=== PATIENT | female | born 1950 | race Caucasian/White ===

== ENCOUNTER 2019-06-20 15:52 | Inpatient (IN) | payer MEDICARE ==
[~2019-06-20] VITALS: Ht 154.9 cm; Wt 65.8 kg
[2019-06-20 21:43] VITALS: BP 157/90
--- NOTE | 2019-06-20 21:43 | NUR ---
Pt. arrived on floor at 2142 by reddy from [place]. Pt. is A&Ox3, denies pain. Pt. is on AFB precautions for suspected tuberculosis. Admission assessment done at this time. Admission questions were answered as well. Bed in lowest position, call light within reach. Will continue to monitor.
[2019-06-20 23:00] VITALS: BP 145/75
[2019-06-21] MEDS ORDERED: HYDR-2761 PO (00:27)
[2019-06-21] MEDS ORDERED: MULT-638 PO (00:27)
[2019-06-21] MEDS ORDERED: ENOX40DI SQ (00:27)
[2019-06-21] MEDS ORDERED: PANT40TA77 PO (00:27)
[2019-06-21] MEDS ORDERED: POTA20TA82 PO (00:27)
[2019-06-21] MEDS ORDERED: ASCO500T3 PO (00:27)
[2019-06-21] MEDS ORDERED: NYST15CR TP (00:27)
[2019-06-21] MEDS ORDERED: LISI-334 PO (00:27)
[2019-06-21] MEDS ORDERED: L. R1CAP6 PO (00:27)
[2019-06-21] MEDS ORDERED: ONDA4TAB7 IV (00:27)
[2019-06-21] MEDS ORDERED: PIP/TAZO PER PHARMACY MC PRN (00:45)
[2019-06-21] MEDS ORDERED: ONDANSETRON PF 4 MG/2 ML VIAL. IV PRN (01:00)
[2019-06-21] MEDS: IV NORMAL SALINE 1000ML BAG 1,000 ML IV SCH ×2 (01:00→17:05)
--- NOTE | 2019-06-21 01:53 | NUR ---
Pt. is from home. States she is wheelchair bound but sometimes uses a walker to move around in the home. Pt. takes care of who is also wheelchair bound, has leukemia, and is an amputee. Pt. states she would like more help around the home. They have an agency that helps them clean a little but pt. usually cleans around the house when no one is around to help.
[2019-06-21] MEDS: VANCOMYCIN PER PHARMACY MC PRN ×2 (02:16→15:35)
--- NOTE | 2019-06-21 02:16 | NUR ---
Pharmacy Vancomycin Dosing Note S:Consulted to monitor and dose vancomycin started 06/16/19. O:KATHLEEN CULP is a 68 year old F with UTI LEUKOCYTOSIS, DECUB ULCER . Height: feet, inches Weight: kg [place] Body Weight: 47.80 Adjusted Body Weight: 53.48 Dosing Weight: Actual Other Antibiotics: ZOSYN 3.375 GM Q6H LABS: Last BUN: 7 Last Creatinine: 0.8 Creatinine Clearance: 46 mL/min Last WBC: 9.9 Last Procalcitonin: Tmax (past 24 hours): Microbiology: I/O: Drug Levels: Last Trough level: 18.4 on 06/19/19 at 1600 Last dose given 06/20/19 at 1600 Vancomycin Dosing: Loading Dose: STARTED AT [facility] x1 Dosing Weight: Actual Target Trough: 10-20 A: Based on: [facility] LABS AND LEVELS P: 1. Continue Vancomycin 1000 mg IV q12h 2. Follow up level IF NEEDED 3. Pharmacy will continue to monitor, follow and adjust therapy as needed. DALI RODRÍGUEZ RPH, 06/21/19 0216 Signed: 06/21/19 at 0217 by DALI RODRÍGUEZ RPH PHA
[2019-06-21 03:00] VITALS: BP 151/78
[2019-06-21] MEDS: VANCOMYCIN 1 GM in IV NORMAL SALINE 250ML 250 ML IV SCH ×2 (04:40→17:06)
[2019-06-21] MEDS: ACETAMINOPHEN 325 MG TABLET. PO PRN (04:48)
[2019-06-21] MEDS ORDERED: PIPERACILLIN/TAZOBACTAM 4.5 GM in IV NORMAL SALINE 100ML 100 ML IV SCH (06:00)
[2019-06-21] MEDS: PIPERACILLIN/TAZOBACTAM 3.375 GM in IV NORMAL SALINE 50ML 50 ML IV SCH ×4 (06:22→23:31)
[2019-06-21 07:00] VITALS: BP 157/78
--- NOTE | 2019-06-21 07:26 | NUR ---
Spoke with Dr. Charles re: ortho consult for L femur fx. Ok for pt to eat this am, he will visit with her later on today.
[2019-06-21 08:30] LABS: BASO # 0.1 x10^3/uL (0.0-0.2); BASO % 1 % (0-3); EOS # 0.4 x10^3/uL (0.0-0.7); EOS % 4 % (0-3); HEMATOCRIT 32.1 % (36.0-47.0); HEMOGLOBIN 10.8 g/dL (12.0-15.5); LYMPH # 1.2 x10^3/uL (1.0-4.8); LYMPH % 12 % (24-48); MEAN CORPUSCULAR HEMOGLOBIN 29 pg (25-35); MEAN CORPUSCULAR HGB CONC 34 g/dL (31-37); MEAN CORPUSCULAR VOLUME 87 fL (79-100); MONO # 0.7 x10^3/uL (0.0-1.1); MONO % 7 % (0-9); NEUT # 7.9 x10^3/uL (1.8-7.7); NEUT % 77 % (31-73); PLATELET COUNT 417 x10^3/uL (140-400); RED CELL DISTRIBUTION WIDTH 13.5 % (11.5-14.5); WHITE BLOOD COUNT 10.2 x10^3/uL (4.0-11.0)
[2019-06-21 08:55] LABS: ALBUMIN 2.4 g/dL (3.4-5.0); ALBUMIN/GLOBULIN RATIO 0.6 (1.0-1.7); CREATININE 0.7 mg/dL (0.6-1.0); GFR 83.5; TOTAL BILIRUBIN 0.3 mg/dL (0.2-1.0); TOTAL PROTEIN 6.6 g/dL (6.4-8.2)
[2019-06-21] MEDS ORDERED: NYSTATIN 100,000 UNIT/GM TOPICAL CREAM 15GM TUBE. TP SCH (09:00)
--- NOTE | 2019-06-21 09:13 | NUR ---
IP: Pt is a transfer from [facility] and needs a mrsa screen. Pt also is a r/o TB according to [facility]. TB test negative, Quantiferon drawn 04/19/19 and is pending. Pt had nodules on CXR. Pt to be in contact/airborne-TB precautions. Recommend either a pulmonary or ID consult.
--- NOTE | 2019-06-21 10:22 | PDOC2 ---
CONSULT Date of Consult Date of Consult DATE: 06/21/19 TIME: 10:06 Reason for Consult Reason for Consult: Possible left hip fracture Identification/Chief Complaint Chief Complaint Difficulty walking, weakness Source Source: Chart review, Patient History of Present Illness Reason for Visit: This 68-year-old woman has difficulty walking, and uses a wheelchair or walker at home. Her is also wheelchair-bound, and she is asking several times to get home as soon as possible to help care for him. She denies any recent hip injury or pain. She says she had a hip injury treated [facility] in 2018. Most of her complaints involve weakness of the lower extremities and difficulty walking especially the right leg. She said it was difficult even to lift the right leg from the bed, but is not painful. She had been sitting in a wheelchair for about 10 days, and apparently developed a decubitus ulcer. She is on TB precautions currently. I reviewed her admission notes from [facility] earlier this months, as follows: The patient is a 68-year-old female patient who lives [place] her in a [place] property who apparently was brought to the Emergency Room because of weakness. According to her , she has been in her wheelchair for the last week and a half. She is complaining of pain in her right knee and right ankle as well as left shoulder, has not been eating or drinking. Her does not know if she has a bowel movement. She took a shower while in a wheelchair. He apparently gets all her medication from the [place]. There is a lady that comes and helps to clean the house, but they do not have any home health or private care. Both of them are wheelchair bound. She herself cannot transfer from her wheelchair to the bed and the does most of the cooking, laundry; however, he is unable to lift her from the wheelchair to the bed. She apparently has been in a wheelchair for the last 10 days and developed stage 4 decubitus ulcer on her right buttock with central eschar with surrounding erythema. She has also severe intertriginous candidiasis below her breasts around her umbilical area and both groins area and perianal. She is apparently incontinent of urine. Apparently, follows with Dr. Weiss and the last time which she saw him about a month ago. He wanted to do x-rays of her right knee, right ankle and left shoulder, but she has never made it there. Social History Lives: with Family Current Medications Current Medications Current Medications Ascorbic Acid (Vitamin C) 500 mg BID PO ; Start 06/21/19 at 09:00 Enoxaparin Sodium (Lovenox 40mg Syringe) 40 mg DAILY SQ ; Start 06/21/19 at 09:00 Acetaminophen/ Hydrocodone Bitart (Lortab 5/325) 1 tab PRN Q6HRS PRN PO MODERATE PAIN 4-6; Start 06/21/19 at 00:30 Lisinopril (Prinivil) 20 mg DAILY PO ; Start 06/21/19 at 09:00 Multivitamins (Thera M Plus) 1 tab DAILY PO ; Start 06/21/19 at 09:00 Nystatin (Mycostatin) 1 rui BID TP ; Start 06/21/19 at 09:00; Status Cancel Pantoprazole Sodium (Protonix) 40 mg DAILYAC PO ; Start 06/21/19 at 07:30 Lactobacillus Rhamnosus (Culturelle) 1 cap BID PO ; Start 06/21/19 at 09:00 Ondansetron HCl (Zofran) 4 mg PRN Q4HRS PRN IV NAUSEA/VOMITING 1ST CHOICE; Start 06/21/19 at 01:00 Potassium Chloride (Klor-Con) 20 meq TID PO ; Start 06/21/19 at 09:00 Piperacillin Sod/ Tazobactam Sod (Zosyn Per Pharmacy) 1 each PRN DAILY PRN MC SEE COMMENTS; Start 06/21/19 at 00:45 Vancomycin HCl (Vanco Per Pharmacy) 1 each PRN DAILY PRN MC SEE COMMENTS Last administered on 06/21/19at 02:16; Start 06/21/19 at 00:45 Piperacillin Sod/ Tazobactam Sod 4.5 gm/Sodium Chloride 100 ml @ 200 mls/hr Q8HRS IV ; Start 06/21/19 at 06:00; Status UNV Vancomycin HCl 1 gm/Sodium Chloride 250 ml @ 250 mls/hr Q12H IV Last administered on 06/21/19at 04:40; Start 06/21/19 at 04:00 Acetaminophen (Tylenol) 650 mg PRN Q4HRS PRN PO MILD PAIN / TEMP Last administered on 06/21/19at 04:48; Start 06/21/19 at 01:00 Sodium Chloride 1,000 ml @ 75 mls/hr [id number] IV Last administered on 06/21/19at 02:17; Start 06/21/19 at 01:00 Piperacillin Sod/ Tazobactam Sod 3.375 gm/Sodium Chloride 50 ml @ 100 mls/hr Q6HRS IV Last administered on 06/21/19at 06:22; Start 06/21/19 at 06:00 Nystatin (Nystop) 1 rui BID TP ; Start 06/21/19 at 09:00 Active Scripts Active Reported Potassium Chloride 20 Meq Tablet.er 20 Meq PO TID Protonix (Pantoprazole Sodium) 40 Mg Tablet.dr 40 Mg PO DAILYAC Zofran (Ondansetron Hcl) 4 Mg Tablet 4 Mg IV Q4HRS PRN Nystatin 15 Gm Cream..g. 1 Rui TP BID Thera M Plus Tablet (Multivits,Ca,Minerals/Iron/FA) 1 Each Tablet 1 Each PO ANTOINE Y Lisinopril 20 Mg Tablet 1 Tab PO DAILY Culturelle Probiotics Capsule (L. Rhamnosus GG/Inulin) 1 Each Capsule 1 Each PO BID Hydrocodone-Apap 5-325 (Hydrocodone Bit/Acetaminophen) 1 Tab Tablet 1 Tab PO PRN Q6HRS PRN Lovenox (Enoxaparin Sodium) 40 Mg/0.4 Ml Disp.syrin 40 Mg SQ DAILY Ascorbic Acid 500 Mg Tablet 500 Mg PO BID Allergies Allergies: Coded Allergies: No Known Drug Allergies (Unverified , 06/21/19) ROS General: YES: Fatigue Musculoskeletal: Yes Gait Disturbance Neurological: Yes Gait Disturbance, Yes Weakness Physical Exam General: Alert, Cooperative HEENT: Atraumatic Lungs: Normal air movement Heart: Regular rate Abdomen: Soft Extremities: Other (the right lower extremity seems to have weakness, she is unable to lift the leg from the bed. There is valgus deformity at the knee, and minimal tenderness, doubtful effusion, but the exam is consistent with chronic valgus osteoarthritis of the right knee. She has flattening of the arch of the right foot, and decreased motion of the ankle, most consistent with arthritis, although lumbar radiculopathy or spinal stenosis with subsequent weakness is also possible. I moved her left hip around fairly aggressively, and she had no hip pain. I mimicked weightbearing by loading the left leg, and again there is no hip pain. There is no bruising at the hip and no tenderness. Clinically there is no current fracture of the left hip.) Neuro: Normal speech, Other (weakness right lower extremity greater than left lower instrument as above) MUSCULOSKELETAL: Abnormal exam of right (knee and ankle, osteoarthritis, poss ibly posttraumatic. There seems to be possibly some underlying weakness as well.) Vitals VITALS Vital Signs Date Time Temp Pulse Resp B/P (MAP) Pulse Ox O2 Delivery O2 Flow Rate FiO2 06/21/19 07:00 98.0 74 14 157/78 (104) 94 Room Air 98.0 Labs Labs Laboratory Tests Test 06/20/19 06:00 06/21/19 06:00 Sodium Level 141 mmol/L (136-145) Potassium Level 4.0 mmol/L (3.5-5.1) Chloride Level 105 mmol/L (98-107) Carbon Dioxide Level 24 mmol/L (21-32) Anion Gap 12 (6-14) Blood Urea Nitrogen 8 mg/dL (7-20) Creatinine 0.7 mg/dL (0.6-1.0) Estimated GFR (Cockcroft-Gault) 83.5 BUN/Creatinine Ratio 11 (6-20) Glucose Level 83 mg/dL (70-99) Calcium Level 9.0 mg/dL (8.5-10.1) Total Bilirubin 0.3 mg/dL (0.2-1.0) Aspartate Amino Transf (AST/SGOT) 26 U/L (15-37) Alanine Aminotransferase (ALT/SGPT) 26 U/L (14-59) Alkaline Phosphatase 60 U/L (46-116) Total Protein 6.6 g/dL (6.4-8.2) Albumin 2.4 g/dL (3.4-5.0) Albumin/Globulin Ratio 0.6 (1.0-1.7) White Blood Count 10.2 x10^3/uL (4.0-11.0) Red Blood Count 3.70 x10^6/uL (3.50-5.40) Hemoglobin 10.8 g/dL (12.0-15.5) Hematocrit 32.1 % (36.0-47.0) Mean Corpuscular Volume 87 fL (79-100) Mean Corpuscular Hemoglobin 29 pg (25-35) Mean Corpuscular Hemoglobin Concent 34 g/dL (31-37) Red Cell Distribution Width 13.5 % (11.5-14.5) Platelet Count 417 x10^3/uL (140-400) Neutrophils (%) (Auto) 77 % (31-73) Lymphocytes (%) (Auto) 12 % (24-48) Monocytes (%) (Auto) 7 % (0-9) Eosinophils (%) (Auto) 4 % (0-3) Basophils (%) (Auto) 1 % (0-3) Neutrophils # (Auto) 7.9 x10^3/uL (1.8-7.7) Lymphocytes # (Auto) 1.2 x10^3/uL (1.0-4.8) Monocytes # (Auto) 0.7 x10^3/uL (0.0-1.1) Eosinophils # (Auto) 0.4 x10^3/uL (0.0-0.7) Basophils # (Auto) 0.1 x10^3/uL (0.0-0.2) Laboratory Tests Test 06/21/19 06:00 White Blood Count 10.2 x10^3/uL (4.0-11.0) Red Blood Count 3.70 x10^6/uL (3.50-5.40) Hemoglobin 10.8 g/dL (12.0-15.5) Hematocrit 32.1 % (36.0-47.0) Mean Corpuscular Volume 87 fL (79-100) Mean Corpuscular Hemoglobin 29 pg (25-35) Mean Corpuscular Hemoglobin Concent 34 g/dL (31-37) Red Cell Distribution Width 13.5 % (11.5-14.5) Platelet Count 417 x10^3/uL (140-400) Neutrophils (%) (Auto) 77 % (31-73) Lymphocytes (%) (Auto) 12 % (24-48) Monocytes (%) (Auto) 7 % (0-9) Eosinophils (%) (Auto) 4 % (0-3) Basophils (%) (Auto) 1 % (0-3) Neutrophils # (Auto) 7.9 x10^3/uL (1.8-7.7) Lymphocytes # (Auto) 1.2 x10^3/uL (1.0-4.8) Monocytes # (Auto) 0.7 x10^3/uL (0.0-1.1) Eosinophils # (Auto) 0.4 x10^3/uL (0.0-0.7) Basophils # (Auto) 0.1 x10^3/uL (0.0-0.2) Images Images Reports reviewed, images independently reviewed. I reviewed the CT scan of the left hip. Doubtful fracture. I agree if there was high index of suspicion I would get an MRI, however her examination is benign so I do not believe MRI is necessary. I also reviewed the 2018 "hip fracture" which was a greater tuberosity fracture and pubic rami fractures, and these may causing some of the abnormalities on x-ray and CT. She has posttraumatic appearing right ankle osteoarthritis. There is right knee osteoarthritis, also possibly posttraumatic. There is a an old left proximal humerus fracture which is well-healed, and subsequent osteoarthritis [place] [address] IMAGING REPORT Signed PATIENT: KATHLEEN CULP ACCOUNT: [id number] : 1950 LOCATION: [address] [place] [address] AGE: 68 SEX: F EXAM STATUS: ADM IN ORD. PHYSICIAN: MOISE PRATT MD REASON: SEVERE BACK PAIN INCONTINENCE AND INABILITY TO WALK PROCEDURE: CT LUMBAR SPINE WO CONTRAST PQRS Compliance Statement: One or more of the following individualized dose reduction techniques were utilized for this examination: 1. Automated exposure control 2. Adjustment of the mA and/or kV according to patient size 3. Use of iterative reconstruction technique CT lumbar spine and pelvis without contrast 06/18/2019 INDICATION: Severe low back pain, incontinence and inability to walk. COMPARISON: None available. TECHNIQUE: Multiple axial CT images of the lumbar spine and pelvis were obtained without intravenous contrast. Coronal and sagittal reformats are provided. FINDINGS: There is levoconvex scoliosis of the lumbar spine with apex levocurvature at L3-L4. Vertebral body heights are maintained. Sagittal alignment is intact. There is moderate disc height loss at L5-S1. Mild disc height loss at T12-L1 and L1-L2. Mild to moderate intramarginal osteophytosis, most prominent at L5-S1. L1-L2: There is a moderate disc bulge asymmetric to the left. Is mild facet arthropathy. There is moderate left and mild right neuroforaminal stenosis. No spinal canal stenosis. L2-L3: Mild disc bulge. There is mild to moderate facet arthropathy. Mild bilateral neuroforaminal stenosis. No spinal canal stenosis. L3-L4: There is a moderate disc bulge. There is mild to moderate facet arthropathy. There is moderate bilateral neuroforaminal stenosis. Mild to moderate spinal canal stenosis. L4-L5: There is a moderate disc bulges central disc protrusion. Is moderate facet arthropathy with ligamentum flavum infolding. There is moderate neuroforaminal stenosis, left greater than right. There is moderate spinal canal stenosis. L5-S1: Mild disc bulge. There is moderate facet arthropathy, left. In right. There is moderate to severe left and moderate right neuroforaminal stenosis. No significant spinal canal stenosis. Abdominal aorta is normal in caliber. Superior pole right renal cyst is partially profiled measuring 3.6 cm. Motion artifact limits evaluation of the lower pelvis. There may be trace free fluid within the dependent portion of the pelvis. Prominent small bowel loops are identified in the left lower quadrant. Urinary bladder is within normal limits given degree of distention. Grimm catheter is identified. Uterus and adnexa are normal by CT. Rectum is normal in caliber. No pathologically enlarged pelvic lymph nodes. Sacrum and coccyx are intact. There is moderate bilateral hip joint space narrowing with marginal osteophytosis. There is either motion artifact are subtle step-off involving the basicervical left femur (series 4, image 34). Superior and inferior pubic rami are intact. There is osseous remodeling of the inferior left pubic ramus suggestive of remote fracture. Fascia appears intact. Acetabula are intact. Sacrum is intact. IMPRESSION: 1. Moderate lumbar spondylosis without acute fracture. Levoconvex scoliosis of the lumbar spine is present. 2. Suspect a nondisplaced fracture involving the basicervical left femur. Further characterization with MRI is recommended as there is motion artifact limiting evaluation. 3. Small volume free f -- luid in the pelvis. Electronically signed by: Angelita Gupta MD (06/18/2019 4:52 PM) [facility] DICTATED AND SIGNED BY: ANGELITA GUPTA MD DATE: 06/18/19 16[address] [place] [id number] IMAGING REPORT Signed PATIENT: KATHLEEN CULP ACCOUNT: [id number] : 1950 LOCATION: [address] [place] [address] AGE: 68 SEX: F EXAM STATUS: ADM IN ORD. PHYSICIAN: MOISE PRATT MD REASON: pain and difficulty walking PROCEDURE: PELVIS Indications: Pain and difficulty walking. 2 VIEW STUDY OF THE RIGHT ANKLE: No acute fracture or dislocation or lytic process is evident. Old healed fracture of the distal shaft of the right fibula is seen. Severe degenerative osteoarthritis of the mortise ankle joint is seen including joint space narrowing and subchondral sclerosis and spurring especially involving the tibiotalar joint compartment. There is flattening of the plantar arch. Plantar and posterior spurs of the calcaneus are seen. Subtalar joint compartments are poorly visualized. Therefore, osseous tarsal coalition is possible. IMPRESSION: No acute fracture. See discussion above. AP VIEW OF THE PELVIS: Old healed fractures of the superior and inferior pubic rami of the left obturator ring are seen. No acute-appearing fracture is evident. Contrast is seen within the urinary bladder which obscures the sacrum. IMPRESSION: Old fractures of the left obturator ring. TWO-VIEW STUDY LEFT SHOULDER: Deformity of the proximal left humerus is seen due to an old healed fracture. No acute-appearing fracture is evident. There is degenerative osteoarthritis of the AC joint and glenohumeral joint. There is impingement of the acromiohumeral space which may result in rotator cuff disease. IMPRESSION: No acute fracture. See discussion above. 2 VIEW STUDY OF THE RIGHT KNEE: No acute fracture is seen. There is deformity of the proximal right fibula consistent with an old healed fracture. Tricompartmental primary degenerative osteoarthritis of the right knee is seen most severely involving the lateral tibiofemoral joint compartment. Calcified atheromatous arterial disease is evident. IMPRESSION: Tricompartmental primary degenerative osteoarthritis of the right knee. Electronically signed by: Jayshree Broussard MD (06/16/2019 3:51 PM) [facility] DICTATED AND SIGNED BY: JAYSHREE BROUSSARD MD DATE: 06/16/19 1551 I also reviewed the 2018 hip injury. [address] [address] IMAGING REPORT Signed PATIENT: KATHLEEN CULP ACCOUNT: [id number] : 1950 LOCATION: ER AGE: 67 SEX: F EXAM STATUS: REG ER ORD. PHYSICIAN: YANIQUE BRAMBILA MD REASON: hip pain PROCEDURE: CT PELVIS WO CONTRAST CT PELVIS WO CONTRAST Indication: FALL 1 WEEK AGO, UNABLE TO BARE WEIGHT Exposure: One or more of the following individualized dose reduction techniques were utilized for this examination: 1. Automated exposure control 2. Adjustment of the mA and/or kV according to patient size 3. Use of iterative reconstruction technique. Comparison: None are available. Contrast: None Fracture of the greater tuberosity. Minimal displacement, measures 7 mm. No evidence of fracture line through the intertrochanteric region or femoral neck. No other acute fracture identified. Chronic fracture deformities of left inferior and left superior pubic rami. Mild degenerative changes at the hips. Sacroiliac joints are intact. Degenerative spondylosis of the partially visualized spine. Urinary bladder is collapsed around a Grimm catheter. Mild retained stool identified at the rectum. IMPRESSION: 1. Mildly displaced posttraumatic fracture of the greater trochanter of the left proximal femur. 2. Old fracture deformities of the left superior and inferior pubic rami. Electronically signed by: Leonel Rader MD (02/02/2018 3:55 PM) [facility] DICTATED AND SIGNED BY: LEONEL RADER MD DATE: 02/02/18 1544 CC: PCP,NO; YANIQUE BRAMBILA MD Assessment/Plan Assessment/Plan Unspecified fracture of left femur, sequela S72.92XS (She had a fracture in 2018, I don't believe there is any new fracture here, based on exam) Weakness R53.1 Spinal stenosis, lumbar region M48.06 Pressure ulcer of sacral region L89.15 I don't believe she needs further workup of the left hip. The left hip exami nation is unremarkable. X-rays and CT scan did not confirm any specific fracture. I would order an MRI if there was a high index of suspicion of left hip fracture but her main complaint is right leg weakness, and she had no hip pain with aggressive left hip range of motion. She may weight-bear as tolerated from my standpoint with no further left hip workup or surgery planned. She does have a lot of leg weakness on the right side and has spinal stenosis on the CT scan of the lumbar spine. I will ask Dr. Vee to be involved due to her global weakness and difficulty walking, and I will also consult Dr. Dominguez for possible lumbar epidural steroids. She is not a good surgical candidate presently for any lumbar surgery, due to the pressure ulcer. Physical therapy will be useful. CLIFF CANDELARIA MD Jun 21, 2019 10:22
[2019-06-21] MEDS: NYSTATIN TOPICAL POWDER 15GM BOTTLE. TP SCH ×2 (10:28→20:41)
[2019-06-21] MEDS: LISINOPRIL 20 MG TABLET PO SCH (10:30)
[2019-06-21] MEDS: LACTOBACILLUS RHAMNOSUS GG 1 CAPSULE. PO SCH ×2 (10:30→20:41)
[2019-06-21] MEDS: PANTOPRAZOLE 40 MG TABLET.DR. PO SCH (10:31)
[2019-06-21] MEDS: MULTIVITAMIN with MINERAL TABLET. PO SCH (10:31)
[2019-06-21] MEDS: POTASSIUM CHLORIDE 20 MEQ TABLET.ER. PO SCH ×3 (10:31→20:41)
[2019-06-21] MEDS: ASCORBIC ACID 500 MG TABLET PO SCH ×2 (10:31→20:41)
[2019-06-21] MEDS: ENOXAPARIN 40 MG/0.4 ML SYRINGE. SQ SCH (10:32)
--- NOTE | 2019-06-21 10:58 | NUR ---
SS following for discharge planning. SS reviewed pt chart. Pt is from home with spouse and is currently on room air. No discharge needs noted at this time. SS will continue to follow for discharge planning.
[2019-06-21 11:00] VITALS: BP 168/90
--- NOTE | 2019-06-21 11:45 | NUR ---
Per Omayra at Dr. Vee's office, he is out of town until Wednesday06/26/19, no coverage for him while he is gone.
--- NOTE | 2019-06-21 11:46 | NUR ---
Spoke with Keri at Dr. Dominguez office re: consult. States that pt is not a candidate for any procedures/injection at this time d/t infection, anticoags and buttocks PU but she will pass it to Dr. Dominguez in case there is other recommendations.
--- NOTE | 2019-06-21 12:29 | PDOC ---
SUBJECTIVE Subjective right hip pain OBJECTIVE Objective This 68yo female with C/O pain with walking, using wheelchair or walker at home. Most of her complaints involve weakness of the lower extremities and difficulty walking especially the right leg. She said it was difficult even to lift the right leg from the bed, but is not painful. She had been sitting in a wheelchair for about 10 days, and apparently developed a decubitus ulcer. She is on TB precautions currently. Vital Signs Vital Signs Date Time Temp Pulse Resp B/P (MAP) Pulse Ox O2 Delivery O2 Flow Rate FiO2 06/21/19 11:00 98.0 80 14 168/90 (116) 97 Room Air 98.0 06/21/19 10:32 74 157/78 06/21/19 07:45 Room Air 06/21/19 07:00 98.0 74 14 157/78 (104) 94 Room Air 98.0 06/21/19 03:00 97.9 76 14 151/78 (102) 96 Room Air 97.9 06/20/19 23:00 100.6 67 18 145/75 (98) 98 Room Air 100.6 06/20/19 21:43 98.4 71 16 157/90 (112) 97 Room Air 98.4 06/20/19 21:43 Room Air I & O Intake and Output 06/21/19 06:59 Intake Total 250 ml Output Total 1400 ml Balance -1150 ml Intake Oral 250 ml Output Urine Total 1400 ml ASSESSMENT/PLAN Assessment/Plan MRI reviewed with lumbar degeneration L4-5, L5-S1 REC: PT eval/Rehab eval pending, complete antibiotics course and treatment of decubitus Once these are resolved, and if eligible to hold anticoagulants, may benefit from LESI as outpt. COMMENT Lab Laboratory Tests Test 06/21/19 06:00 White Blood Count 10.2 x10^3/uL (4.0-11.0) Red Blood Count 3.70 x10^6/uL (3.50-5.40) Hemoglobin 10.8 g/dL (12.0-15.5) Hematocrit 32.1 % (36.0-47.0) Mean Corpuscular Volume 87 fL (79-100) Mean Corpuscular Hemoglobin 29 pg (25-35) Mean Corpuscular Hemoglobin Concent 34 g/dL (31-37) Red Cell Distribution Width 13.5 % (11.5-14.5) Platelet Count 417 x10^3/uL (140-400) Neutrophils (%) (Auto) 77 % (31-73) Lymphocytes (%) (Auto) 12 % (24-48) Monocytes (%) (Auto) 7 % (0-9) Eosinophils (%) (Auto) 4 % (0-3) Basophils (%) (Auto) 1 % (0-3) Neutrophils # (Auto) 7.9 x10^3/uL (1.8-7.7) Lymphocytes # (Auto) 1.2 x10^3/uL (1.0-4.8) Monocytes # (Auto) 0.7 x10^3/uL (0.0-1.1) Eosinophils # (Auto) 0.4 x10^3/uL (0.0-0.7) Basophils # (Auto) 0.1 x10^3/uL (0.0-0.2) ULI GAYTAN MD Jun 21, 2019 12:29
[2019-06-21] MEDS: HYDROcodone/APAP 5/325MG 1 TAB TABLET PO PRN ×2 (14:05→19:31)
--- NOTE | 2019-06-21 14:29 | PDOC2 ---
Chief Complaint: Chief Complaint: Weakness Problems: (1) Unstageable pressure ulcer of sacral region Vital Signs: Vital Signs: Vital Signs Date Time Temp Pulse Resp B/P (MAP) Pulse Ox O2 Delivery O2 Flow Rate FiO2 06/20/19 21:43 Room Air 06/20/19 21:43 98.4 71 16 157/90 (112) 97 98.4 Vital Signs Date Time Temp Pulse Resp B/P (MAP) Pulse Ox O2 Delivery O2 Flow Rate FiO2 06/21/19 14:11 Room Air 06/21/19 11:00 98.0 80 14 168/90 (116) 97 98.0 Allergies: Allergies: Allergies Coded Allergies Type Severity Reaction Last Updated Verified No Known Drug Allergies 06/21/19 No Medications: Home Meds Reported Medications Potassium Chloride (POTASSIUM CHLORIDE) 20 Meq Tablet.er, 20 MEQ PO TID for supplement, TAB.SR 06/21/19 Pantoprazole Sodium (PROTONIX ) 40 Mg Tablet.dr, 40 MG PO DAILYAC for GERD, TAB 06/21/19 Ondansetron Hcl (ZOFRAN) 4 Mg Tablet, 4 MG IV Q4HRS PRN for NAUSEA/VOMITING, TAB 06/21/19 Nystatin (NYSTATIN) 15 Gm Cream..g., 1 JIMMIE TP BID for antifungal, #30 GM 06/21/19 Multivits,Ca,Minerals/Iron/FA (Thera M Plus Tablet) 1 Each Tablet, 1 EACH PO DAILY for vitamin, TAB 06/21/19 Lisinopril (LISINOPRIL) 20 Mg Tablet, 1 TAB PO DAILY for blood pressure, #30 TAB 5 Refills 06/21/19 L. Rhamnosus GG/Inulin (Culturelle Probiotics Capsule) 1 Each Capsule, 1 EACH PO BID for probiotic, CAP 06/21/19 Hydrocodone Bit/Acetaminophen (HYDROCODONE-APAP 5-325 ) 1 Tab Tablet, 1 TAB PO PRN Q6HRS PRN for PAIN, TAB 0 Refills 06/21/19 Enoxaparin Sodium (LOVENOX) 40 Mg/0.4 Ml Disp.syrin, 40 MG SQ DAILY for ANTI- COAGULANT, DIS.SYR 06/21/19 Ascorbic Acid (ASCORBIC ACID) 500 Mg Tablet, 500 MG PO BID for vitamin, TAB 06/21/19 PCP: PCP: Dr Weiss Date of Onset Ms. Mijares was admitted in transfer from [facility] where she was originally admitted for weakness and possible hip fracture. She has limited mobility due to previous pelvis/hip/leg fractures but developed sufficient weakness recently that she remained in her WC for 10 days. As a consequence she developed coccyx and right buttock pressure sores. She denies pain associated with them. Surgical Date NA PMH Non diabetic PSH , lives at home with her who is WC bound. She has never smoked cigarettes Physical Exam - Wound #1 Wound Exam Body Site: Coccyx Drainage Amount: None Surrounding Tissue Appearance: pink Wound Description: unstagable (covered with soft dark eschar) Stage: Unstageable A/P Nonstagable right buttock pressure ulcer due to recent immobility. No s/s infection. Surgical debridement is an option but we should first try NPWT with veraflo. The primary modality for healing this wound will be off-loading by frequent positioning. Problems: (1) Unstageable pressure ulcer of sacral region VIDAL UNDERWOOD MD Jun 21, 2019 14:29
[2019-06-21 15:00] VITALS: BP 116/63
--- NOTE | 2019-06-21 15:58 | HP ---
ADMIT DATE: 06/20/2019 HISTORY OF PRESENT ILLNESS: The patient is a 68-year-old female patient, who was admitted on 06/16/2019, with marked weakness and pain in her right knee and right ankle joint as well as left shoulder. She has not been eating or drinking. She has been sitting in a wheelchair for almost 10 days. She was evaluated in the Emergency Room and was found to have large right gluteal decubitus ulcer. She was incontinent of urine. Has several intertriginous candidiasis under her breasts and around umbilical area as well as groin and perineal area. She has been unable to walk and so we did x-ray of her right ankle, right knee as well as lumbar spine and pelvic CT scan. Pelvic CT scan showed that there is a suspected nondisplaced fracture involving her basicervical left femur. Further characterization with MRI is recommended as there is motion artifact limiting evaluation. There is also small volume of fluid in the pelvis and therefore, a decision was made to transfer her to to consult the orthopedic surgeon to arrange for perhaps nuclear bone scan or MRI to characterize this fracture, failure. Imaging studies included also a CT angio of the chest, she has D-dimer elevated and it showed that she has numerous subcentimeter pulmonary nodules in the lung, prominently at the lung bases measuring up to 5 mm. There is no pleural effusion or thickening. There is cholelithiasis. Otherwise, the visualized upper abdominal organs are unremarkable. We actually did a tuberculin test, which was negative and was sent to QuantiFERON test, the result of which is still pending. The patient was kept in isolation and we did consult the orthopedic surgeon to evaluate her. I will also consult Infectious Disease for treatment of her infected right gluteal decubitus ulcer as well as possibility of miliary tuberculosis. PAST MEDICAL HISTORY: Significant for hypertension. PAST SURGICAL HISTORY: Unremarkable. ALLERGIES: She has no known drug allergies. MEDICATIONS: She was on mirtazapine and lisinopril before she arrived to the hospital. She is currently on multivitamin with calcium 1 tablet once a day, ascorbic acid 500 mg twice a day. She is on vancomycin 1 gram twice a day, potassium chloride 20 mEq 3 times a day, Protonix 40 mg daily, ondansetron 4 mg IV every 4 hours, Lovenox 40 mg subcutaneously once a day for DVT prophylaxis. She is on hydrocodone/APAP 5/325 one tablet every 6 hours, Zosyn 4.5 grams IV every 8 hours and Lactobacillus rhamnosus 1 capsule twice a day. She is also on Mycolog 1 application twice a day and lisinopril 20 mg once a day. FAMILY HISTORY: Unremarkable. SOCIAL HISTORY: She is and lives with , both are wheelchair bound. She does not smoke, drink alcohol or use recreational drugs. 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 She has one daughter who does not really keep in touch. REVIEW OF SYSTEMS: As per history of present illness. PHYSICAL EXAMINATION: GENERAL: When I saw her today, she looked well and was clearly in no apparent respiratory distress, slightly pale. No jaundice, cyanosis or thyromegaly. No jugular venous distention. No lower limb edema. VITAL SIGNS: Her heart rate was 80, blood pressure was 168/90, temperature was 98, respiratory rate was 14 and oxygen saturation was 97%. HEAD, EYES, EARS, NOSE, AND THROAT: Showed normocephalic, atraumatic. NECK: Supple. HEART: Showed normal first and second heart sounds with no gallop, rub or murmur. CHEST: Clear to auscultation. No crepitation or rhonchi. ABDOMEN: Distended, soft, nontender. No guarding or rigidity. No organomegaly. All hernial orifices are intact. Bowel sounds normal. NEUROLOGIC: She is awake, alert, very hard of hearing. Otherwise, her cranial nerves are intact. EXTREMITIES: She moves upper extremities without difficulty. She is having more difficulty with pain in her right ankle and right knee joint. LABORATORY DATA: Showed a white cell count of 10,000, hemoglobin 11, hematocrit 32, MCV 87, and platelet count of 117,000. Her serum sodium was 141, potassium 4, chloride 105, bicarbonate 24, anion gap of 12, BUN 8, creatinine 0.7, estimated GFR was 84 mL per minute. Her glucose was 83, calcium was 9. Total bilirubin, AST, ALT, alkaline phosphatase were normal. Total protein was 6.6, albumin 2.4. ASSESSMENT AND PLAN: In summary, this is a 68-year-old female patient, who was transferred from [facility] for a questionable left hip nondisplaced left femoral neck fracture. She also has multiple pulmonary nodules in the lung bases, proceeded tuberculin test and sent QuantiFERON test, the results are still pending. She is currently in isolation for that. She has also large right stage 4 sacral decubitus ulcer with surrounding cellulitis, which she was treated with IV vancomycin and Zosyn. She has difficulty walking. Severe pain in her right knee and right ankle joint as well as difficulty walking. Have consulted the orthopedic surgeon, Infectious Disease, Dr. Terry Dominguez, the face painter as well as Dr. Vee. MOISE PRATT MD DR: HANS/dania JOB#: [id number] / [id number]
--- NOTE | 2019-06-21 16:56 | NUR ---
Wound Care: Consult to eval and treat unstageable pressure ulcer to R coccyx present on admission. Per report, pt was at home and sitting in her WC for 10 days. Her legs are contracted and spasmodic. On P500 mattress. Screened by Dr. Colin who was unable to debride at bedside. Dr. Clarke approved veraflow therapy to soften eschar. Wound bed soft leathery eschar with sloughy borders and 15% pink granulation. 1 piece of silver waffle and 1 pice silver foam applied to wound bed, ostomy ring to periwound. Bridged to R anterior thigh. Hydrocolloid along edge of dressing proximal to rectum to prevent stool contamination. NS instilling 20cc [id number] dwell time Q3.5H. Communicated with Kylah MACHADO. Follow up Wednesday06/23/19
[2019-06-21 19:00] VITALS: BP 150/83
[2019-06-21 23:00] VITALS: BP 145/63
[2019-06-22 03:00] VITALS: BP 167/85
[2019-06-22] MEDS: VANCOMYCIN 1 GM in IV NORMAL SALINE 250ML 250 ML IV SCH ×2 (04:00→16:28)
[2019-06-22] MEDS: IV NORMAL SALINE 1000ML BAG 1,000 ML IV SCH ×2 (04:00→16:31)
[2019-06-22] MEDS: HYDROcodone/APAP 5/325MG 1 TAB TABLET PO PRN ×4 (04:01→17:43)
[2019-06-22] MEDS: PIPERACILLIN/TAZOBACTAM 3.375 GM in IV NORMAL SALINE 50ML 50 ML IV SCH ×3 (05:41→17:57)
[2019-06-22] MEDS: PANTOPRAZOLE 40 MG TABLET.DR. PO SCH (05:41)
[2019-06-22 06:38] LABS: CALCIUM 8.6 mg/dL (8.5-10.1); CREATININE 0.8 mg/dL (0.6-1.0); GFR 71.5; POTASSIUM 4.2 mmol/L (3.5-5.1)
[2019-06-22 07:00] VITALS: BP 133/61
[2019-06-22] MEDS: ASCORBIC ACID 500 MG TABLET PO SCH ×2 (08:14→20:33)
[2019-06-22] MEDS: POTASSIUM CHLORIDE 20 MEQ TABLET.ER. PO SCH ×3 (08:14→20:34)
[2019-06-22] MEDS: LISINOPRIL 20 MG TABLET PO SCH (08:15)
[2019-06-22] MEDS: MULTIVITAMIN with MINERAL TABLET. PO SCH (08:15)
[2019-06-22] MEDS: LACTOBACILLUS RHAMNOSUS GG 1 CAPSULE. PO SCH ×2 (08:16→20:33)
[2019-06-22] MEDS: NYSTATIN TOPICAL POWDER 15GM BOTTLE. TP SCH ×2 (08:17→20:37)
[2019-06-22] MEDS: ENOXAPARIN 40 MG/0.4 ML SYRINGE. SQ SCH (08:18)
[2019-06-22 11:00] VITALS: BP 124/64
--- NOTE | 2019-06-22 13:54 | NUR ---
SS following up with discharge planning. Dr. Clarke requested referral be sent to [facility], ; fax [phone]. SS phoned and faxed referral to [facility]. SS received phone contact from Rosa Elena at [facility] stating that referral was sent to them while pt was at [facility] and pt was accepted and insurance authorization had been approved while at [facility]. SS will continue to send clinical to [facility] as received. Pt's RN notified.
[2019-06-22] MEDS: VANCOMYCIN PER PHARMACY MC PRN (14:04)
--- NOTE | 2019-06-22 14:53 | PDOC ---
Infectious Disease Note Vital Sign Vital Signs Vital Signs Date Time Temp Pulse Resp B/P (MAP) Pulse Ox O2 Delivery O2 Flow Rate FiO2 06/22/19 11:00 98.9 69 14 124/64 (84) 98 Room Air 98.9 Labs Lab Laboratory Tests Test 06/22/19 05:55 Sodium Level 142 mmol/L (136-145) Potassium Level 4.2 mmol/L (3.5-5.1) Chloride Level 108 mmol/L (98-107) Carbon Dioxide Level 26 mmol/L (21-32) Anion Gap 8 (6-14) Blood Urea Nitrogen 8 mg/dL (7-20) Creatinine 0.8 mg/dL (0.6-1.0) Estimated GFR (Cockcroft-Gault) 71.5 Glucose Level 85 mg/dL (70-99) Calcium Level 8.6 mg/dL (8.5-10.1) Objective Assessment Pulmonary nodules predominantly at the lung apices. PPD neg Unstageable right gluteal pressure wound, POA. ESR 60. Pelvic CT showed no evidence osteo. Rosi intertrigo - improved with Nystatin powder Fever - better Leukocytosis (14.4) improved Spinal stenosis Generalized weakness Plan Plan of Care QuantiFERON test reportedly negative per D/w with Dr. Vince garcia and Alvaro for now. Monitor renal function closely Wound care team following Offloading Continue nystatin powder Consider pulmonary consult Thank you [id number] TB spot neg and in chart and no risk factors - d/c isolation Check Crypto/histo antigens -h/o bird exposure Pulm eval for bronch Local wound care Attending Co-Sign Attending Co-Sign The patient was seen and interviewed as well as examined at the bedside. The chart was reviewed. The case was discussed. Agree with the plan of care. ROCHELLE DIAZ APRN Jun 22, 2019 14:53 MARIA FERNANDA ARCEO MD Jun 22, 2019 16:48
[2019-06-22 15:00] VITALS: BP 146/67
--- NOTE | 2019-06-22 16:42 | CONS ---
DATE OF CONSULTATION: 06/22/2019 INFECTIOUS DISEASE CONSULTATION NOTE REFERRING PHYSICIAN: Keila Clarke MD REASON FOR CONSULTATION: Multiple pulmonary nodules concerning for tuberculosis versus other. HISTORY OF PRESENT ILLNESS: This patient is a 68-year-old female who lives at home with her . On 06/15/2019, she presented to [facility] with complaints of generalized weakness and unable to transfer from her wheelchair. She complained of right knee, right ankle as well as left shoulder pain. She had not been eating or drinking. She sat in her wheelchair for over a week and a half and was incontinent of urine. Imaging showed spinal stenosis, lumbar region and suspected nondisplaced fracture involving the basicervical left femur. She was evaluated by Dr. Charles with no surgical plans. On exam, she was found to have an unstageable pressure wound coccyx area and yeast in the skin folds. She had a ESR of 60. A CT pelvis showed sacrum and coccyx intact. She had elevated white blood cell count of 14,000. Her urinalysis showed wbc's 11-20 small leukocyte esterase with few bacteria and occasional squamous epithelial cells. Urine culture showed less than 10,000 CFU bacteria/mL. She had a PICC placed and was started on vancomycin and Zosyn. A CT chest showed innumerable small pulmonary nodules, predominantly at the lung opacities measuring up to 5 mm. Concern for tuberculosis, she was placed in airborne isolation. A tuberculin was negative and QuantiFERON test was ordered. Denies significant weight changes. The patient said 30 years ago, she live in [place] for about a year. She denies shortness of air, cough or chest discomfort. She denies significant weight changes,chills or sweats. She said her has had cold symptoms lately. She is feeling a little bit better overall. She had fever a couple days ago that has since settled down. Denies nausea, vomiting or diarrhea. She was seen by wound care team and now has a wound VAC in place. PAST MEDICAL HISTORY: Arthritis, hypertension, hearing problem. History of humerus fracture, left trochanteric fracture and pelvic fracture. PAST SURGICAL HISTORY: Appendectomy. FAMILY HISTORY: Noncontributory. SOCIAL HISTORY: The patient is and lives at home. She is wheelchair bound. Nonsmoker. 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 She has one daughter. She has cat and dog. She has a history of having a bird many years ago. ALLERGIES: No known drug allergies. CURRENT MEDICATIONS: Vancomycin, Zosyn, nystatin powder. Other medications are available and have been reviewed on the MAR. REVIEW OF SYSTEMS: Per HPI, otherwise all other review of systems are negative. PHYSICAL EXAMINATION: VITAL SIGNS: Temperature is 98.9, blood pressure 124/64, heart rate 69, respiratory rate 14 and pulse oximetry 98% on room air. GENERAL: The patient is slightly propped up in bed, lying on her right side, alert and in no apparent distress. HEENT: Pupils equally round, reactive. Normal conjunctivae. Oropharynx pink and moist. Poor dentition. She is hard of hearing. NECK: Supple. LUNGS: Clear to auscultation. HEART: S1, S2. ABDOMEN: Obese, soft, nontender with bowel sounds present. GENITOURINARY: Indwelling Grimm in place. EXTREMITIES: No gross edema or cyanosis. SKIN: Warm to touch. Skin folds minimally red. Right gluteal wound VAC in place. Pictures show an unstageable wound. NEUROLOGIC: Alert, oriented x 3. LUE-PICC without signs of any complications. LABORATORY DATA: Recent WBC 10.2, hemoglobin 10.8 and platelets 417,000. Sodium 142, potassium 4.2, creatinine 0.8, BUN 8, glucose 85, total bilirubin 0.3, AST 26, ALT 26, albumin 2.4. MRSA screen negative. Urinalysis and culture per HPI. Vancomycin trough was 18.4 on 06/19/2019. IMAGING DATA: Reviewed. IMPRESSION: 1. Pulmonary nodules, predominantly at the lung bases. PPD negative. QuantiFERON test reportedly negative as of this dictation. 2. Unstageable right gluteal pressure wounds present on admission. Pelvic CT showed no evidence of osteomyelitis. 3. Rosi intertrigo improving with nystatin powder. 4. Fever, better. 5. Leukocytosis, improved. 6. Spinal stenosis. 7. Generalized weakness. PLAN: Continue vancomycin and Zosyn for now. Monitor renal function closely. PPD and QuantiFERON tests were negative. Check cryptococcus and histoplasma antigens. Continue local wound care and offloading. Continue nystatin powder. May discontinue isolation precautions. Thank you, Dr. Clarke for asking us to participate in this patient's care. Should you have further questions or concerns, please call. Patient seen, examined and plan of care implemented by Dr. Arceo. MARIA FERNANDA ARCEO MD DR: NETO/dania JOB#: [id number] / [id number] ERIKA
[2019-06-22 19:00] VITALS: BP 139/88
[2019-06-22] MEDS: ACETAMINOPHEN 325 MG TABLET. PO PRN (20:33)
[2019-06-22 23:00] VITALS: BP 149/81
[2019-06-23] MEDS: PIPERACILLIN/TAZOBACTAM 3.375 GM in IV NORMAL SALINE 50ML 50 ML IV SCH ×5 (00:02→23:53)
[2019-06-23 03:00] VITALS: BP 141/78
--- NOTE | 2019-06-23 03:17 | PN ---
DATE: 06/22/2019 SUBJECTIVE: The patient is resting, slightly propped up in bed, no apparent distress. On questioning her, she stated that she is feeling much better. Pain in her right gluteal area is much less. She is now on wound vacuum assisted closure device. Her tuberculin test was negative. I did send the QuantiFERON test, the result of which is still pending. She was seen by Dr. Charles and he does not believe that the patient has any hip fracture and does not recommend doing an MRI. PHYSICAL EXAMINATION: GENERAL: When I examined her this morning, she looked well and was clearly in no apparent respiratory distress. No pallor, jaundice, cyanosis, or thyromegaly. No jugular venous distention. No limb edema. VITAL SIGNS: Her heart rate was 81, blood pressure was 167/85, temperature was 97.3, respiratory rate was 16, and oxygen saturation was 94%. HEAD, EYES, EARS, NOSE, AND THROAT: Normocephalic, atraumatic. NECK: Supple. HEART: Showed normal first and second heart sounds with no gallop, rub, or murmur. CHEST: Clear to auscultation. No crepitation or rhonchi. ABDOMEN: Distended, soft, nontender. No guarding or rigidity. No organomegaly. All hernial orifice intact. Bowel sounds normal. NEUROLOGIC: She is definitely more awake, alert, responding appropriately. All cranial nerves intact. She continued to be mostly bedbound. She has a large gluteal decubitus ulcer covered with wound vacuum assisted closure device. She has an indwelling Grimm catheter. Her intake over the last 24 hours was 2550, output was 3950. LABORATORY DATA: Her lab work as of yesterday showed a white cell count of 10,000, hemoglobin 11, hematocrit 31, MCV 87, and platelet count of 117,000. Her serum sodium this morning was 142, potassium 4.2, chloride 108, bicarbonate 26, anion gap of 8, BUN 8, creatinine 0.8, estimated GFR was 71 mL per minute, her glucose was 85, calcium was 8.6. ASSESSMENT AND PLAN: 1. Questionable left nondisplaced femoral neck fracture, for which she was seen by Dr. Charles, who did not believe the patient has any fracture and did not recommend any further workup or MRI. 2. She has multiple pulmonary nodules in both upper lobes. The patient was lived in [place]. I saw her tuberculin test was negative and sent the QuantiFERON test, the result of which is still pending. She continued to be currently in isolation. 3. She has large stage 4 sacral decubitus ulcer and surrounding cellulitis, for which she was treated with IV vancomycin and Zosyn. 4. She has difficulty walking. 5. Due to severe pain in her right knee and right ankle joint, she was seen by Dr. Stewart but as long as she is getting antibiotics, he did not recommend doing any spinal epidural steroid injection. Once she is off isolation, I will contact the case management and see if she can qualify to be transferred to [facility] to continue with wound care, IV antibiotic and start the process of physical and occupational therapy. MOISE PRATT MD DR: HANS/dania JOB#: [id number] / [id number]
[2019-06-23] MEDS: VANCOMYCIN 1 GM in IV NORMAL SALINE 250ML 250 ML IV SCH ×2 (04:15→17:03)
[2019-06-23] MEDS: HYDROcodone/APAP 5/325MG 1 TAB TABLET PO PRN ×4 (05:08→20:57)
[2019-06-23] MEDS: IV NORMAL SALINE 1000ML BAG 1,000 ML IV SCH ×2 (06:20→23:56)
[2019-06-23 06:43] LABS: CALCIUM 8.9 mg/dL (8.5-10.1); CREATININE 0.9 mg/dL (0.6-1.0); GFR 62.5; POTASSIUM 4.1 mmol/L (3.5-5.1)
[2019-06-23 07:00] VITALS: BP 133/70
[2019-06-23 07:19] LABS: BASO # 0.1 x10^3/uL (0.0-0.2); BASO % 1 % (0-3); EOS # 0.5 x10^3/uL (0.0-0.7); EOS % 5 % (0-3); HEMATOCRIT 31.4 % (36.0-47.0); HEMOGLOBIN 10.3 g/dL (12.0-15.5); LYMPH # 1.2 x10^3/uL (1.0-4.8); LYMPH % 11 % (24-48); MEAN CORPUSCULAR HEMOGLOBIN 29 pg (25-35); MEAN CORPUSCULAR HGB CONC 33 g/dL (31-37); MEAN CORPUSCULAR VOLUME 88 fL (79-100); MONO # 0.8 x10^3/uL (0.0-1.1); MONO % 7 % (0-9); NEUT # 9.1 x10^3/uL (1.8-7.7); NEUT % 77 % (31-73); PLATELET COUNT 418 x10^3/uL (140-400); RED BLOOD COUNT 3.59 x10^6/uL (3.50-5.40); RED CELL DISTRIBUTION WIDTH 13.7 % (11.5-14.5); WHITE BLOOD COUNT 11.7 x10^3/uL (4.0-11.0)
[2019-06-23] MEDS: LACTOBACILLUS RHAMNOSUS GG 1 CAPSULE. PO SCH ×2 (08:01→20:53)
[2019-06-23] MEDS: PANTOPRAZOLE 40 MG TABLET.DR. PO SCH (08:01)
[2019-06-23] MEDS: ASCORBIC ACID 500 MG TABLET PO SCH ×2 (08:02→20:53)
[2019-06-23] MEDS: POTASSIUM CHLORIDE 20 MEQ TABLET.ER. PO SCH ×3 (08:03→20:53)
[2019-06-23] MEDS: MULTIVITAMIN with MINERAL TABLET. PO SCH (08:03)
[2019-06-23] MEDS: LISINOPRIL 20 MG TABLET PO SCH (08:04)
[2019-06-23] MEDS: ENOXAPARIN 40 MG/0.4 ML SYRINGE. SQ SCH (08:05)
[2019-06-23] MEDS: NYSTATIN TOPICAL POWDER 15GM BOTTLE. TP SCH ×2 (08:06→20:55)
--- NOTE | 2019-06-23 08:40 | NUR ---
IP: Mrsa screen and TB testing are negative and isolation may be discontinued per ID physician.
--- NOTE | 2019-06-23 10:36 | CONS ---
DATE OF CONSULTATION: PULMONARY CONSULTATION ATTENDING PHYSICIAN: Dr. Clarke. REASON FOR CONSULTATION: Lung nodules. HISTORY OF PRESENT ILLNESS: The patient is a 68-year-old female who has never smoked cigarettes. She was brought into the hospital for evaluation of large right decubitus gluteal ulcer. The patient has not been able to walk for some time. She had a CT scan, which showed a suspected nondisplaced fracture involving her left femur. MRI suggestive was a motion artifact limiting evaluation. She had a CT chest, which was done on 06/16/2019 and I have reviewed the CT chest. There were few tiny lung nodules up to 5 mm in size in the upper lobes. There was no other consolidation. No other masses seen. She had a TB spot test, which was negative. She is a nonsmoker. She has no weight loss, no fever, no chills, no night sweats. PAST MEDICAL HISTORY: Significant for hypertension. PAST SURGICAL HISTORY: Unremarkable. ALLERGIES: None. MEDICATIONS: Reviewed as listed in the MRAD. REVIEW OF SYSTEMS: Ten-point system obtained. Pertinent positives discussed in my history of present illness, otherwise noncontributory. All systems that were negative were reviewed as well. SOCIAL HISTORY: Nonsmoker. PHYSICAL EXAMINATION: VITAL SIGNS: Reviewed. Pulse ox 97% on room air, afebrile. HEENT: Sclerae nonicteric. NECK: Supple. LUNGS: Clear. CARDIOVASCULAR: With a regular rate. ABDOMEN: Soft. EXTREMITIES: With trace pitting edema. She has a wound VAC. LABORATORY DATA: Reviewed. White cell count was 10.2, hemoglobin 10.8 and platelets are 417. BUN and creatinine normal. IMPRESSION: 1. Tiny few lung nodule seen in the upper lobes, largest being up to 5 mm in size. There are no other masses. She is a lifetime nonsmoker. These nodules likely represent noncalcified granulomas and a followup scan in 6-8 months would be reasonable. 2. No clinical suspicion for tuberculosis. Her tuberculosis spot test was negative. Clinically, no symptoms to suggest that either. 3. Large sacral decubitus ulcer, on a wound VAC. RECOMMENDATIONS: 1. From a pulmonary standpoint, no further intervention at present is needed for the tiny lung nodules. 2. I would recommend a followup CT in 6-8 months. 3. Treatment of sacral decubitus per Surgery and ID. 3. We will follow along with you. 4. Discussed with Dr. Clarke. NEHA ARZOLA MD DR: SETH/dania JOB#: [id number] / [id number]
[2019-06-23 11:00] VITALS: BP 168/83
--- NOTE | 2019-06-23 12:44 | PDOC ---
Infectious Disease Note Subjective Subjective Feeling alright, wants to go home No F/C/S/cough/SOA/N/V/D ROS ROS per HPI Vital Sign Vital Signs Vital Signs Date Time Temp Pulse Resp B/P (MAP) Pulse Ox O2 Delivery O2 Flow Rate FiO2 06/23/19 11:36 95 Room Air 06/23/19 11:00 98.1 80 20 168/83 (111) 98.1 Physical Exam PHYSICAL EXAM GENERAL: Slightly propped up in bed, lying on her left side, NAD HEENT: Pupils equally round, reactive. Normal conjunctivae. Oropharynx pink and moist. Poor dentition. She is hard of hearing. NECK: Supple. LUNGS: Clear to auscultation. HEART: S1, S2. ABDOMEN: Obese, soft, nontender with bowel sounds present. GENITOURINARY: Indwelling Grimm in place. EXTREMITIES: No gross edema or cyanosis. SKIN: Warm to touch. Skin folds minimally red. Right gluteal wound VAC in place. Pictures show an unstageable wound. NEUROLOGIC: Alert, oriented x 3. LUE-PICC without signs of any complications. Labs Lab Laboratory Tests Test 06/23/19 05:30 White Blood Count 11.7 x10^3/uL (4.0-11.0) Red Blood Count 3.59 x10^6/uL (3.50-5.40) Hemoglobin 10.3 g/dL (12.0-15.5) Hematocrit 31.4 % (36.0-47.0) Mean Corpuscular Volume 88 fL (79-100) Mean Corpuscular Hemoglobin 29 pg (25-35) Mean Corpuscular Hemoglobin Concent 33 g/dL (31-37) Red Cell Distribution Width 13.7 % (11.5-14.5) Platelet Count 418 x10^3/uL (140-400) Neutrophils (%) (Auto) 77 % (31-73) Lymphocytes (%) (Auto) 11 % (24-48) Monocytes (%) (Auto) 7 % (0-9) Eosinophils (%) (Auto) 5 % (0-3) Basophils (%) (Auto) 1 % (0-3) Neutrophils # (Auto) 9.1 x10^3/uL (1.8-7.7) Lymphocytes # (Auto) 1.2 x10^3/uL (1.0-4.8) Monocytes # (Auto) 0.8 x10^3/uL (0.0-1.1) Eosinophils # (Auto) 0.5 x10^3/uL (0.0-0.7) Basophils # (Auto) 0.1 x10^3/uL (0.0-0.2) Sodium Level 142 mmol/L (136-145) Potassium Level 4.1 mmol/L (3.5-5.1) Chloride Level 107 mmol/L (98-107) Carbon Dioxide Level 25 mmol/L (21-32) Anion Gap 10 (6-14) Blood Urea Nitrogen 7 mg/dL (7-20) Creatinine 0.9 mg/dL (0.6-1.0) Estimated GFR (Cockcroft-Gault) 62.5 Glucose Level 82 mg/dL (70-99) Calcium Level 8.9 mg/dL (8.5-10.1) Objective Assessment Pulmonary nodules predominantly at the lung apices. PPD and QuantiFERON neg Unstageable right gluteal pressure wound, POA. ESR 60. Pelvic CT showed no evidence osteo. Rosi intertrigo - improved with Nystatin powder Fever - better Leukocytosis (14.4) improved Spinal stenosis Generalized weakness Plan Plan of Care vanc and Zosyn for now. - taper soon F/u WBC in am Monitor renal function closely Wound care team following Offloading Continue nystatin powder Appreciate pulm input. Attending Co-Sign Attending Co-Sign The patient was seen and interviewed as well as examined at the bedside. The chart was reviewed. The case was discussed. Agree with the plan of care. ROCHELLE DIAZ APRN Jun 23, 2019 12:44 MARIA FERNANDA ARCEO MD Jun 23, 2019 15:10
--- NOTE | 2019-06-23 13:45 | NUR ---
Wound Care: Patient seen per wound care follow up for Veraflo wound vac dressing change. Dressing removed and wound cleansed and assessed. Skin prepped for wound vac, an ostomy ring placed to claudia-wound. 2 pieces of gage foam used and tracked up to the right upper anterior thigh. Canister changed. A good seal maintained with 20cc instilled, for 5 minutes of dwell time every 3.5 hours. A hydrocolloid was placed to the inferior portion of wound dressing for better seal management. Patient brief changed and repositioned in chair. Bilateral legs elevated. Call light in reach. awaiting outside patient door. Wound care will follow for wound vac dressing change on Wednesday.
[2019-06-23] MEDS: VANCOMYCIN PER PHARMACY MC PRN (14:19)
[2019-06-23 15:00] VITALS: BP 128/61
--- NOTE | 2019-06-23 15:45 | NUR ---
SS following up with discharge planning. Pt accepted at [facility], ; fax [phone]. No bed availability today. SS will continue to follow for discharge planning.
[2019-06-23] MEDS: ACETAMINOPHEN 325 MG TABLET. PO PRN (18:59)
[2019-06-23 19:00] VITALS: BP 130/86
[2019-06-23 22:59] VITALS: BP 127/59
--- NOTE | 2019-06-24 02:16 | PN ---
DATE: 06/23/2019 SUBJECTIVE: The patient is resting slightly propped up in bed, no apparent distress. She said she feels generally much improved. The pain is much better controlled. The nursing staff did not voice any concern. She was seen by Dr. Mosher and Dr. Ta. Her tuberculin test and QuantiFERON test were negative and she is off isolation. OBJECTIVE: GENERAL: When I examined her this afternoon, she looked well and was clearly in no apparent respiratory distress, pale. No jaundice, cyanosis or thyromegaly. No jugular venous distention. No limb edema. VITAL SIGNS: Her heart rate was 80, blood pressure was 168/83, temperature was 98.1, respiratory rate was 20 and oxygen saturation was 95% on room air. HEAD, EYES, EARS, NOSE AND THROAT: Showed normocephalic, atraumatic. NECK: Supple. HEART: Showed normal first and second heart sounds with no gallop, rub or murmur. CHEST: Clear to auscultation. No crepitation or rhonchi. ABDOMEN: Distended, soft, nontender. NEUROLOGIC: She is awake, alert, responding appropriately. All cranial nerves are intact. She moves upper extremities to a much greater extent than lower extremities, mostly bed bound. She has a large right side gluteal decubitus ulcer, covered with wound VAC. She has an indwelling Grimm catheter. Her intake over the last 24 hours was 2550, output was 3600. LABORATORY DATA: Her lab work this morning showed a white cell count 11,700, hemoglobin 10, hematocrit 31, MCV 88, and platelet count of 118,000. Serum sodium 142, potassium 4.1, chloride 107, bicarbonate 25, anion gap of 10, BUN 7, creatinine 0.9, estimated GFR was 63 mL per minute. Her glucose was 82, calcium was 8.9. ASSESSMENT AND PLAN: 1. Questionable left nondisplaced femoral neck fracture, for which she was seen by Dr. Charles and apparently, clinically no evidence of fracture. 2. Multiple pulmonary nodules in both upper lobes. The patient has lived in [place]. She has had tuberculin test, was negative and QuantiFERON test was negative. She is off isolation. 3. She has a large gluteal decubitus ulcer with surrounding cellulitis, for which she is on IV vancomycin, Zosyn and Diflucan. 4. She has severe pain in her right knee and ankle joint and degenerative disk disease. However, the pain management team did not recommend any spinal epidural steroid injection for the time being. I did contact to [facility] and apparently, they have no bed today, so hopefully, we will discharge her there tomorrow. MOISE PRATT MD DR: HANS/dania JOB#: [id number] / [id number]
[2019-06-24] MEDS: HYDROcodone/APAP 5/325MG 1 TAB TABLET PO PRN ×4 (02:51→21:32)
[2019-06-24 03:00] VITALS: BP 141/77
[2019-06-24] MEDS: VANCOMYCIN 1 GM in IV NORMAL SALINE 250ML 250 ML IV SCH (04:31)
[2019-06-24] MEDS: PIPERACILLIN/TAZOBACTAM 3.375 GM in IV NORMAL SALINE 50ML 50 ML IV SCH ×3 (06:07→17:18)
[2019-06-24 06:39] LABS: BASO # 0.1 x10^3/uL (0.0-0.2); BASO % 1 % (0-3); EOS # 0.5 x10^3/uL (0.0-0.7); EOS % 5 % (0-3); HEMOGLOBIN 9.9 g/dL (12.0-15.5); LYMPH # 1.5 x10^3/uL (1.0-4.8); LYMPH % 15 % (24-48); MEAN CORPUSCULAR HEMOGLOBIN 29 pg (25-35); MEAN CORPUSCULAR HGB CONC 33 g/dL (31-37); MEAN CORPUSCULAR VOLUME 88 fL (79-100); MONO # 0.8 x10^3/uL (0.0-1.1); MONO % 8 % (0-9); NEUT # 7.2 x10^3/uL (1.8-7.7); NEUT % 71 % (31-73); PLATELET COUNT 393 x10^3/uL (140-400); RED BLOOD COUNT 3.42 x10^6/uL (3.50-5.40); RED CELL DISTRIBUTION WIDTH 13.8 % (11.5-14.5); WHITE BLOOD COUNT 10.1 x10^3/uL (4.0-11.0)
[2019-06-24 06:42] LABS: CALCIUM 8.7 mg/dL (8.5-10.1); CREATININE 0.8 mg/dL (0.6-1.0); GFR 71.5; POTASSIUM 4.3 mmol/L (3.5-5.1)
[2019-06-24 07:00] VITALS: BP 154/97
--- NOTE | 2019-06-24 07:41 | PDOC ---
PULMONARY PROGRESS NOTES Subjective no sob, cough, has knee pain Vitals Vital Signs Date Time Temp Pulse Resp B/P (MAP) Pulse Ox O2 Delivery O2 Flow Rate FiO2 06/24/19 03:00 97.7 82 18 141/77 (98) 96 Room Air 97.7 ROS: No Nausea General: Alert HEENT: Other (nc at perrl) Lungs: Clear Cardiovascular: S1, S2 Abdomen: Soft Neuro Exam: Alert Skin: Warm Labs Laboratory Tests Test 06/23/19 05:30 06/24/19 06:10 White Blood Count 11.7 x10^3/uL (4.0-11.0) 10.1 x10^3/uL (4.0-11.0) Red Blood Count 3.59 x10^6/uL (3.50-5.40) 3.42 x10^6/uL (3.50-5.40) Hemoglobin 10.3 g/dL (12.0-15.5) 9.9 g/dL (12.0-15.5) Hematocrit 31.4 % (36.0-47.0) 30.0 % (36.0-47.0) Mean Corpuscular Volume 88 fL (79-100) 88 fL (79-100) Mean Corpuscular Hemoglobin 29 pg (25-35) 29 pg (25-35) Mean Corpuscular Hemoglobin Concent 33 g/dL (31-37) 33 g/dL (31-37) Red Cell Distribution Width 13.7 % (11.5-14.5) 13.8 % (11.5-14.5) Platelet Count 418 x10^3/uL (140-400) 393 x10^3/uL (140-400) Neutrophils (%) (Auto) 77 % (31-73) 71 % (31-73) Lymphocytes (%) (Auto) 11 % (24-48) 15 % (24-48) Monocytes (%) (Auto) 7 % (0-9) 8 % (0-9) Eosinophils (%) (Auto) 5 % (0-3) 5 % (0-3) Basophils (%) (Auto) 1 % (0-3) 1 % (0-3) Neutrophils # (Auto) 9.1 x10^3/uL (1.8-7.7) 7.2 x10^3/uL (1.8-7.7) Lymphocytes # (Auto) 1.2 x10^3/uL (1.0-4.8) 1.5 x10^3/uL (1.0-4.8) Monocytes # (Auto) 0.8 x10^3/uL (0.0-1.1) 0.8 x10^3/uL (0.0-1.1) Eosinophils # (Auto) 0.5 x10^3/uL (0.0-0.7) 0.5 x10^3/uL (0.0-0.7) Basophils # (Auto) 0.1 x10^3/uL (0.0-0.2) 0.1 x10^3/uL (0.0-0.2) Sodium Level 142 mmol/L (136-145) 143 mmol/L (136-145) Potassium Level 4.1 mmol/L (3.5-5.1) 4.3 mmol/L (3.5-5.1) Chloride Level 107 mmol/L (98-107) 110 mmol/L (98-107) Carbon Dioxide Level 25 mmol/L (21-32) 25 mmol/L (21-32) Anion Gap 10 (6-14) 8 (6-14) Blood Urea Nitrogen 7 mg/dL (7-20) 9 mg/dL (7-20) Creatinine 0.9 mg/dL (0.6-1.0) 0.8 mg/dL (0.6-1.0) Estimated GFR (Cockcroft-Gault) 62.5 71.5 Glucose Level 82 mg/dL (70-99) 83 mg/dL (70-99) Calcium Level 8.9 mg/dL (8.5-10.1) 8.7 mg/dL (8.5-10.1) Laboratory Tests Test 06/24/19 06:10 White Blood Count 10.1 x10^3/uL (4.0-11.0) Red Blood Count 3.42 x10^6/uL (3.50-5.40) Hemoglobin 9.9 g/dL (12.0-15.5) Hematocrit 30.0 % (36.0-47.0) Mean Corpuscular Volume 88 fL (79-100) Mean Corpuscular Hemoglobin 29 pg (25-35) Mean Corpuscular Hemoglobin Concent 33 g/dL (31-37) Red Cell Distribution Width 13.8 % (11.5-14.5) Platelet Count 393 x10^3/uL (140-400) Neutrophils (%) (Auto) 71 % (31-73) Lymphocytes (%) (Auto) 15 % (24-48) Monocytes (%) (Auto) 8 % (0-9) Eosinophils (%) (Auto) 5 % (0-3) Basophils (%) (Auto) 1 % (0-3) Neutrophils # (Auto) 7.2 x10^3/uL (1.8-7.7) Lymphocytes # (Auto) 1.5 x10^3/uL (1.0-4.8) Monocytes # (Auto) 0.8 x10^3/uL (0.0-1.1) Eosinophils # (Auto) 0.5 x10^3/uL (0.0-0.7) Basophils # (Auto) 0.1 x10^3/uL (0.0-0.2) Sodium Level 143 mmol/L (136-145) Potassium Level 4.3 mmol/L (3.5-5.1) Chloride Level 110 mmol/L (98-107) Carbon Dioxide Level 25 mmol/L (21-32) Anion Gap 8 (6-14) Blood Urea Nitrogen 9 mg/dL (7-20) Creatinine 0.8 mg/dL (0.6-1.0) Estimated GFR (Cockcroft-Gault) 71.5 Glucose Level 83 mg/dL (70-99) Calcium Level 8.7 mg/dL (8.5-10.1) Medications Active Scripts Medications Dose Route/Sig Max Daily Dose Days Date Category Potassium Chloride 20 Meq Tablet.er 20 Meq PO TID 06/21/19 Reported Protonix (Pantoprazole Sodium) 40 Mg Tablet.dr 40 Mg PO DAILYAC 06/21/19 Reported Zofran (Ondansetron Hcl) 4 Mg Tablet 4 Mg IV Q4HRS PRN 06/21/19 Reported Nystatin 15 Gm Cream..g. 1 Rui TP BID 06/21/19 Reported Thera M Plus Tablet (Multivits,Ca,Minerals/Iron/FA) 1 Each Tablet 1 Each PO DAILY 06/21/19 Reported Lisinopril 20 Mg Tablet 1 Tab PO DAILY 06/21/19 Reported Culturelle Probiotics Capsule (L. Rhamnosus GG/Inulin) 1 Each Capsule 1 Each PO BID 06/21/19 Reported Hydrocodone-Apap 5-325 (Hydrocodone Bit/Acetaminophen) 1 Tab Tablet 1 Tab PO PRN Q6HRS PRN 06/21/19 Reported Lovenox (Enoxaparin Sodium) 40 Mg/0.4 Ml Disp.syrin 40 Mg SQ DAILY 06/21/19 Reported Ascorbic Acid 500 Mg Tablet 500 Mg PO BID 06/21/19 Reported Impression . IMPRESSION: 1. Tiny few lung nodule seen in the upper lobes, largest being up to 5 mm in size. There are no other masses. She is a lifetime nonsmoker. These nodules likely represent noncalcified granulomas and a followup scan in 6-8 months would be reasonable. 2. No clinical suspicion for tuberculosis. Her tuberculosis spot test was negative. Clinically, no symptoms to suggest that either. 3. Large sacral decubitus ulcer, on a wound VAC. Plan . RECOMMENDATIONS: 1. From a pulmonary standpoint, no further intervention at present is needed for the tiny lung nodules. 2. I would recommend a followup CT in 6-8 months. 3. Treatment of sacral decubitus per Surgery and ID. 3. We will follow along with you. 4. Discussed with pt, RYLAND Morales MD Jun 24, 2019 07:41
[2019-06-24] MEDS: IV NORMAL SALINE 1000ML BAG 1,000 ML IV SCH ×2 (08:53→16:32)
[2019-06-24] MEDS: PANTOPRAZOLE 40 MG TABLET.DR. PO SCH (08:53)
[2019-06-24] MEDS: LACTOBACILLUS RHAMNOSUS GG 1 CAPSULE. PO SCH ×2 (08:54→21:23)
[2019-06-24] MEDS: ASCORBIC ACID 500 MG TABLET PO SCH ×2 (08:55→21:24)
[2019-06-24] MEDS: POTASSIUM CHLORIDE 20 MEQ TABLET.ER. PO SCH ×3 (08:55→21:24)
[2019-06-24] MEDS: LISINOPRIL 20 MG TABLET PO SCH (08:55)
[2019-06-24] MEDS: MULTIVITAMIN with MINERAL TABLET. PO SCH (08:56)
[2019-06-24] MEDS: NYSTATIN TOPICAL POWDER 15GM BOTTLE. TP SCH ×2 (08:57→21:24)
[2019-06-24] MEDS: ENOXAPARIN 40 MG/0.4 ML SYRINGE. SQ SCH (08:57)
--- NOTE | 2019-06-24 10:38 | PDOC ---
Infectious Disease Note Subjective Subjective c/o some right knee pain + loose stools Denies N/V/F/C ROS ROS per HPI Vital Sign Vital Signs Vital Signs Date Time Temp Pulse Resp B/P (MAP) Pulse Ox O2 Delivery O2 Flow Rate FiO2 06/24/19 09:33 97 Room Air 06/24/19 08:58 75 154/97 06/24/19 07:00 97.9 18 97.9 Physical Exam PHYSICAL EXAM GENERAL: Propped up in bed, alert, laughing HEENT: Pral cavity clear. [place] NECK: Supple. LUNGS: Clear to auscultation. HEART: S1, S2. ABDOMEN: Obese, soft, nontender with bowel sounds present. GENITOURINARY: Indwelling Grimm in place. EXTREMITIES: No gross edema or cyanosis. Right knee wo redness or warmth SKIN: Warm to touch. Skin folds minimally red. Right gluteal wound VAC in place. Pictures show an unstageable wound. NEUROLOGIC: Alert, oriented x 3. LUE-PICC without signs of any complications. Labs Lab Laboratory Tests Test 06/24/19 06:10 White Blood Count 10.1 x10^3/uL (4.0-11.0) Red Blood Count 3.42 x10^6/uL (3.50-5.40) Hemoglobin 9.9 g/dL (12.0-15.5) Hematocrit 30.0 % (36.0-47.0) Mean Corpuscular Volume 88 fL (79-100) Mean Corpuscular Hemoglobin 29 pg (25-35) Mean Corpuscular Hemoglobin Concent 33 g/dL (31-37) Red Cell Distribution Width 13.8 % (11.5-14.5) Platelet Count 393 x10^3/uL (140-400) Neutrophils (%) (Auto) 71 % (31-73) Lymphocytes (%) (Auto) 15 % (24-48) Monocytes (%) (Auto) 8 % (0-9) Eosinophils (%) (Auto) 5 % (0-3) Basophils (%) (Auto) 1 % (0-3) Neutrophils # (Auto) 7.2 x10^3/uL (1.8-7.7) Lymphocytes # (Auto) 1.5 x10^3/uL (1.0-4.8) Monocytes # (Auto) 0.8 x10^3/uL (0.0-1.1) Eosinophils # (Auto) 0.5 x10^3/uL (0.0-0.7) Basophils # (Auto) 0.1 x10^3/uL (0.0-0.2) Sodium Level 143 mmol/L (136-145) Potassium Level 4.3 mmol/L (3.5-5.1) Chloride Level 110 mmol/L (98-107) Carbon Dioxide Level 25 mmol/L (21-32) Anion Gap 8 (6-14) Blood Urea Nitrogen 9 mg/dL (7-20) Creatinine 0.8 mg/dL (0.6-1.0) Estimated GFR (Cockcroft-Gault) 71.5 Glucose Level 83 mg/dL (70-99) Calcium Level 8.7 mg/dL (8.5-10.1) Objective Assessment Pulmonary nodules predominantly at the lung apices. PPD and QuantiFERON neg Unstageable right gluteal pressure wound, POA. ESR 60. Pelvic CT showed no evidence osteo. Rosi intertrigo - improved with Nystatin powder Fever - better Leukocytosis (14.4) improved Spinal stenosis Generalized weakness Anemia Right knee pain Plan Plan of Care vanc and Zosyn for now. - taper soon Crypto & Histo Ag pending Monitor renal function closely Wound care team following Offloading Continue nystatin powder Appreciate pulm input. D/c vanc today Needs PT/OT Attending Co-Sign Attending Co-Sign The patient was seen and interviewed as well as examined at the bedside. The chart was reviewed. The case was discussed. Agree with the plan of care. ROCHELLE DIAZ APRN Jun 24, 2019 10:38 MARIA FERNANDA ARCEO MD Jun 24, 2019 13:56
[2019-06-24 11:00] VITALS: BP 139/70
[2019-06-24] MEDS: VANCOMYCIN PER PHARMACY MC PRN (11:18)
[2019-06-24 15:00] VITALS: BP 141/88
--- NOTE | 2019-06-24 15:43 | PN ---
DATE: 06/24/2019 SUBJECTIVE: The patient is resting, slightly propped up in bed, no apparent distress. She was sleepy, but arousable and on questioning her, she is feeling generally much better. Nursing staff did not voice any concerns that she had an eventful night. PHYSICAL EXAMINATION: GENERAL: When I examined her, she was pale, but no jaundice, cyanosis or thyromegaly. No jugular venous distention. No lower limb edema. VITAL SIGNS: Her heart rate was 75, blood pressure 154/97, temperature was 97.9, respiratory rate was 18 and oxygen saturation was 97%. HEAD, EYES, EARS, NOSE AND THROAT: Normocephalic, atraumatic. NECK: Supple. HEART: Showed normal first and second heart sounds. No gallop or murmur. CHEST: Clear to auscultation. No crepitation or rhonchi. ABDOMEN: Distended, soft, nontender. NEUROLOGIC: She was sleepy, but arousable. All cranial nerves intact. She moves upper extremities to much good extent than lower extremities, mostly bed bound. She has large right-sided gluteal decubitus ulcer covered with wound VAC. Her intake was 420, output was 4400. LABORATORY DATA: As of this morning, her serum sodium was 143, potassium 4.3, chloride 110, bicarbonate 25, anion gap of 8, BUN 9, creatinine 0.8, estimated GFR was 71 mL per minute. Her glucose was 83, calcium was 8.7. Her white cell count was 10,000, hemoglobin 10, hematocrit 30, MCV 88 and platelet count of ____. ASSESSMENT: 1. Questionable left nondisplaced femoral neck fracture for which she was seen by ____ and technically no evidence of fractures. 2. Multiple pulmonary nodules in both upper lobes. The patient has lived in [place], she has had tuberculin test was negative, QuantiFERON test was negative, she is now off isolation. 3. She has a large gluteal decubitus ulcer with surrounding cellulitis, for which she is on IV vancomycin, Zosyn, and Diflucan. 4. She has severe pain in her right knee and ankle joint degenerative disk disease. However, the pain management team did not recommend any spinal epidural steroid injection for the time being. 5. Intertriginous candidiasis has largely resolved. PLAN: To continue with IV antibiotic. Continue with wound care, continue nutritional support, pain management and await bed availability at [facility] before we can transfer her. MOISE PRATT MD DR: HANS/dania JOB#: [id number] / [id number]
[2019-06-24] MEDS: ACETAMINOPHEN 325 MG TABLET. PO PRN (18:40)
[2019-06-24 19:00] VITALS: BP 175/99
[2019-06-24 22:59] VITALS: BP_SYST 135; BP_SYST 158; BP_DIAS 50; BP_DIAS 77
[2019-06-25] MEDS: PIPERACILLIN/TAZOBACTAM 3.375 GM in IV NORMAL SALINE 50ML 50 ML IV SCH ×4 (00:11→17:28)
[2019-06-25 03:00] VITALS: BP 146/76
[2019-06-25] MEDS: HYDROcodone/APAP 5/325MG 1 TAB TABLET PO PRN ×4 (04:37→20:38)
[2019-06-25 07:00] VITALS: BP 137/72
--- NOTE | 2019-06-25 08:17 | PDOC ---
PULMONARY PROGRESS NOTES Subjective hard of hearing, denies sob, cough Vitals Vital Signs Date Time Temp Pulse Resp B/P (MAP) Pulse Ox O2 Delivery O2 Flow Rate FiO2 06/25/19 06:30 20 Room Air 06/25/19 03:00 98.5 69 146/76 (99) 93 98.5 ROS: No Nausea General: Alert HEENT: Other (nc at perrl) Lungs: Clear Cardiovascular: S1, S2 Abdomen: Soft Neuro Exam: Alert Extremities: No Edema Skin: Warm Labs Laboratory Tests Test 06/24/19 06:10 White Blood Count 10.1 x10^3/uL (4.0-11.0) Red Blood Count 3.42 x10^6/uL (3.50-5.40) Hemoglobin 9.9 g/dL (12.0-15.5) Hematocrit 30.0 % (36.0-47.0) Mean Corpuscular Volume 88 fL (79-100) Mean Corpuscular Hemoglobin 29 pg (25-35) Mean Corpuscular Hemoglobin Concent 33 g/dL (31-37) Red Cell Distribution Width 13.8 % (11.5-14.5) Platelet Count 393 x10^3/uL (140-400) Neutrophils (%) (Auto) 71 % (31-73) Lymphocytes (%) (Auto) 15 % (24-48) Monocytes (%) (Auto) 8 % (0-9) Eosinophils (%) (Auto) 5 % (0-3) Basophils (%) (Auto) 1 % (0-3) Neutrophils # (Auto) 7.2 x10^3/uL (1.8-7.7) Lymphocytes # (Auto) 1.5 x10^3/uL (1.0-4.8) Monocytes # (Auto) 0.8 x10^3/uL (0.0-1.1) Eosinophils # (Auto) 0.5 x10^3/uL (0.0-0.7) Basophils # (Auto) 0.1 x10^3/uL (0.0-0.2) Sodium Level 143 mmol/L (136-145) Potassium Level 4.3 mmol/L (3.5-5.1) Chloride Level 110 mmol/L (98-107) Carbon Dioxide Level 25 mmol/L (21-32) Anion Gap 8 (6-14) Blood Urea Nitrogen 9 mg/dL (7-20) Creatinine 0.8 mg/dL (0.6-1.0) Estimated GFR (Cockcroft-Gault) 71.5 Glucose Level 83 mg/dL (70-99) Calcium Level 8.7 mg/dL (8.5-10.1) Medications Active Scripts Medications Dose Route/Sig Max Daily Dose Days Date Category Potassium Chloride 20 Meq Tablet.er 20 Meq PO TID 06/21/19 Reported Protonix (Pantoprazole Sodium) 40 Mg Tablet.dr 40 Mg PO DAILYAC 06/21/19 Reported Zofran (Ondansetron Hcl) 4 Mg Tablet 4 Mg IV Q4HRS PRN 06/21/19 Reported Nystatin 15 Gm Cream..g. 1 Rui TP BID 06/21/19 Reported Thera M Plus Tablet (Multivits,Ca,Minerals/Iron/FA) 1 Each Tablet 1 Each PO DAILY 06/21/19 Reported Lisinopril 20 Mg Tablet 1 Tab PO DAILY 06/21/19 Reported Culturelle Probiotics Capsule (L. Rhamnosus GG/Inulin) 1 Each Capsule 1 Each PO BID 06/21/19 Reported Hydrocodone-Apap 5-325 (Hydrocodone Bit/Acetaminophen) 1 Tab Tablet 1 Tab PO PRN Q6HRS PRN 06/21/19 Reported Lovenox (Enoxaparin Sodium) 40 Mg/0.4 Ml Disp.syrin 40 Mg SQ DAILY 06/21/19 Reported Ascorbic Acid 500 Mg Tablet 500 Mg PO BID 06/21/19 Reported Impression . IMPRESSION: 1. Tiny few lung nodule seen in the upper lobes, largest being up to 5 mm in size. There are no other masses. She is a lifetime nonsmoker. These nodules likely represent noncalcified granulomas and a followup scan in 6-8 months would be reasonable. 2. No clinical suspicion for tuberculosis. Her tuberculosis spot test was negative. Clinically, no symptoms to suggest that either. 3. Large sacral decubitus ulcer, on a wound VAC. Plan . RECOMMENDATIONS: 1. From a pulmonary standpoint, no further intervention at present is needed for the tiny lung nodules. 2. I would recommend a followup CT in 6-8 months. 3. Treatment of sacral decubitus per Surgery and ID. 3. We will follow along with you. 4. Discussed with pt, rn RYLAND KRUGER MD Jun 25, 2019 08:17
[2019-06-25] MEDS: IV NORMAL SALINE 1000ML BAG 1,000 ML IV SCH (09:30)
[2019-06-25] MEDS: LACTOBACILLUS RHAMNOSUS GG 1 CAPSULE. PO SCH ×2 (09:32→20:33)
[2019-06-25] MEDS: PANTOPRAZOLE 40 MG TABLET.DR. PO SCH (09:32)
[2019-06-25] MEDS: POTASSIUM CHLORIDE 20 MEQ TABLET.ER. PO SCH ×3 (09:32→20:34)
[2019-06-25] MEDS: LISINOPRIL 20 MG TABLET PO SCH (09:33)
[2019-06-25] MEDS: ASCORBIC ACID 500 MG TABLET PO SCH ×2 (09:33→20:33)
[2019-06-25] MEDS: MULTIVITAMIN with MINERAL TABLET. PO SCH (09:34)
[2019-06-25] MEDS: ENOXAPARIN 40 MG/0.4 ML SYRINGE. SQ SCH (09:36)
[2019-06-25] MEDS: NYSTATIN TOPICAL POWDER 15GM BOTTLE. TP SCH ×2 (09:36→21:00)
[2019-06-25 11:00] VITALS: BP 146/72
--- NOTE | 2019-06-25 11:02 | PDOC ---
Infectious Disease Note Subjective Subjective Right knee feeling better, less pain Wants to get going on rehab as to return home KELLEY Denies F/C/N/V/SOA ROS ROS per HPI Vital Sign Vital Signs Vital Signs Date Time Temp Pulse Resp B/P (MAP) Pulse Ox O2 Delivery O2 Flow Rate FiO2 06/25/19 10:40 97 Room Air 06/25/19 09:39 69 137/72 06/25/19 07:00 98.1 16 98.1 Physical Exam PHYSICAL EXAM GENERAL: Propped up in bed, alert, smiling HEENT: Oral cavity clear. [place] NECK: Supple. LUNGS: Clear to auscultation. HEART: S1, S2. ABDOMEN: Obese, soft, nontender with bowel sounds present. GENITOURINARY: Indwelling Grimm in place. EXTREMITIES: No gross edema or cyanosis. Right knee wo redness or warmth - legs with some contraction that improves some with POM SKIN: Warm to touch. Right gluteal wound VAC in place. NEUROLOGIC: Alert, oriented x 3. LUE-PICC without signs of any complications. Objective Assessment Pulmonary nodules predominantly at the lung apices. PPD and QuantiFERON neg Unstageable right gluteal pressure wound, POA. ESR 60. Pelvic CT showed no evidence osteo. Rosi intertrigo - improved with Nystatin powder Fever - better Leukocytosis (14.4) improved Spinal stenosis Generalized weakness Anemia Right knee pain Plan Plan of Care Zosyn for now. - taper soon off vanc Probiotics Crypto & Histo Ag pending Wound care team following Continue nystatin powder Appreciate pulm input. PT/OT Attending Co-Sign Attending Co-Sign The patient was seen and interviewed as well as examined at the bedside. The chart was reviewed. The case was discussed. Agree with the plan of care. ROCHELLE DIAZ APRN Jun 25, 2019 11:01 MARIA FERNANDA ARCEO MD Jun 25, 2019 12:15
--- NOTE | 2019-06-25 14:41 | PN ---
DATE: 06/25/2019 SUBJECTIVE: The patient is resting, slightly propped up in bed, sleeping comfortably, in no apparent distress. On questioning her, denied any complaint. The nursing staff did not voice any concerns that she had an uneventful night. PHYSICAL EXAMINATION: GENERAL: When I examined her, she looked pale. No jaundice, cyanosis or thyromegaly. No jugular venous distention. No limb edema. VITAL SIGNS: Her heart rate was 69, blood pressure was 137/72, temperature was 98.1, respiratory rate was 16, and oxygen saturation was 97% on room air. Rest of the clinical examination is stable. She has an indwelling Grimm catheter. Her intake was 240, output was 6200. LABORATORY DATA: As of yesterday, her white cell count was 10,000, hemoglobin 10, hematocrit 30, MCV 88, and platelet count 393. Her serum sodium 143, potassium 4.3, chloride 110, bicarbonate 25, anion gap of 8, BUN 9, creatinine 0.8, estimated GFR was 71 mL per minute, glucose was 83, and calcium was 8.7. ASSESSMENT: 1. Questionable left nondisplaced femoral neck fracture for which she was seen by Dr. Charles and clinically she has no evidence of fracture. 2. Multiple pulmonary nodules in both upper lobes. The patient has lived in [place]. Her tuberculin test was negative and QuantiFERON test was negative. She is now off isolation. 3. She has a large gluteal decubitus ulcer with surrounding cellulitis for which she is on IV vancomycin, Zosyn and Diflucan. 4. She has severe pain in the right knee and right ankle joint degenerative disk disease; however, she is not a candidate for spinal epidural steroid injection for time being. 5. Intertriginous candidiasis - largely resolved. PLAN: Continue IV antibiotic. Continue with wound care. Nutritional support, pain management. Once a bed becomes available at [facility], she will be transferred there. MIOSE PRATT MD DR: HANS/dania JOB#: [id number] / [id number]
[2019-06-25 15:00] VITALS: BP 143/70
[2019-06-25 19:00] VITALS: BP 151/98
[2019-06-25 23:00] VITALS: BP 159/84
[2019-06-26] MEDS: PIPERACILLIN/TAZOBACTAM 3.375 GM in IV NORMAL SALINE 50ML 50 ML IV SCH ×3 (00:39→12:27)
[2019-06-26] MEDS: IV NORMAL SALINE 1000ML BAG 1,000 ML IV SCH (00:40)
[2019-06-26] MEDS: HYDROcodone/APAP 5/325MG 1 TAB TABLET PO PRN ×2 (00:45→09:04)
[2019-06-26 03:00] VITALS: BP 137/80
[2019-06-26 07:00] VITALS: BP 169/86
[2019-06-26] MEDS: ASCORBIC ACID 500 MG TABLET PO SCH (09:02)
[2019-06-26] MEDS: LISINOPRIL 20 MG TABLET PO SCH (09:03)
[2019-06-26] MEDS: LACTOBACILLUS RHAMNOSUS GG 1 CAPSULE. PO SCH (09:03)
[2019-06-26] MEDS: PANTOPRAZOLE 40 MG TABLET.DR. PO SCH (09:03)
[2019-06-26] MEDS: POTASSIUM CHLORIDE 20 MEQ TABLET.ER. PO SCH (09:03)
[2019-06-26] MEDS: MULTIVITAMIN with MINERAL TABLET. PO SCH (09:03)
[2019-06-26] MEDS: ENOXAPARIN 40 MG/0.4 ML SYRINGE. SQ SCH (09:04)
[2019-06-26] MEDS: NYSTATIN TOPICAL POWDER 15GM BOTTLE. TP SCH (09:05)
--- NOTE | 2019-06-26 09:16 | PDOC ---
PULMONARY PROGRESS NOTES Subjective hard of hearing, denies sob, cough Vitals Vital Signs Date Time Temp Pulse Resp B/P (MAP) Pulse Ox O2 Delivery O2 Flow Rate FiO2 06/26/19 09:05 Room Air 06/26/19 09:05 66 169/86 06/26/19 07:00 98.4 14 97 98.4 ROS: No Nausea General: Alert HEENT: Other (nc at perrl) Lungs: Clear Cardiovascular: S1, S2 Abdomen: Soft Neuro Exam: Alert Extremities: No Edema Skin: Warm Medications Active Scripts Medications Dose Route/Sig Max Daily Dose Days Date Category Potassium Chloride 20 Meq Tablet.er 20 Meq PO TID 06/21/19 Reported Protonix (Pantoprazole Sodium) 40 Mg Tablet.dr 40 Mg PO DAILYAC 06/21/19 Reported Zofran (Ondansetron Hcl) 4 Mg Tablet 4 Mg IV Q4HRS PRN 06/21/19 Reported Nystatin 15 Gm Cream..g. 1 Rui TP BID 06/21/19 Reported Thera M Plus Tablet (Multivits,Ca,Minerals/Iron/FA) 1 Each Tablet 1 Each PO DAILY 06/21/19 Reported Lisinopril 20 Mg Tablet 1 Tab PO DAILY 06/21/19 Reported Culturelle Probiotics Capsule (L. Rhamnosus GG/Inulin) 1 Each Capsule 1 Each PO BID 06/21/19 Reported Hydrocodone-Apap 5-325 (Hydrocodone Bit/Acetaminophen) 1 Tab Tablet 1 Tab PO PRN Q6HRS PRN 06/21/19 Reported Lovenox (Enoxaparin Sodium) 40 Mg/0.4 Ml Disp.syrin 40 Mg SQ DAILY 06/21/19 Reported Ascorbic Acid 500 Mg Tablet 500 Mg PO BID 06/21/19 Reported Impression . IMPRESSION: 1. Tiny few lung nodule seen in the upper lobes, largest being up to 5 mm in size. There are no other masses. She is a lifetime nonsmoker. These nodules likely represent noncalcified granulomas and a followup scan in 6-8 months would be reasonable. 2. No clinical suspicion for tuberculosis. Her tuberculosis spot test was negative. Clinically, no symptoms to suggest that either. 3. Large sacral decubitus ulcer, on a wound VAC. Plan . RECOMMENDATIONS: 1. From a pulmonary standpoint, no further intervention at present is needed for the tiny lung nodules. 2. I would recommend a followup CT in 6-8 months. 3. Treatment of sacral decubitus per Surgery and ID. 3. We will follow along with you. 4. Discussed with pt, rn TASHA MILLAN MD Jun 26, 2019 09:16
[2019-06-26] MEDS ORDERED: ASCO500T3 PO (09:41)
[2019-06-26] MEDS ORDERED: MULT1TAB52 PO (09:41)
[2019-06-26] MEDS ORDERED: PIPE3.377 IV (09:41)
[2019-06-26] MEDS ORDERED: NYST1POW5 MC (09:42)
[2019-06-26] MEDS ORDERED: POTA20TA82 PO (09:43)
--- NOTE | 2019-06-26 09:45 | SNU/HH DC ---
DISCHARGE ORDERS DISCHARGE INFORMATION: DISCHARGE DATE: Jun 26, 2019 FINAL DIAGNOSIS Problems Medical Problems: (1) Spinal stenosis Status: Chronic CONDITION ON DISCHARGE: Stable CODE STATUS: Code Status: Full LONG TERM: SNF STAY <30 DAYS: Yes POST DISCHARGE ORDERS: ACTIVITY ORDERS: Resume previous activity WEIGHT BEARING STATUS: Full weight bearing DIET AFTER DISCHARGE: Regular WOUND/INCISION CARE: Change dressing TREATMENT/EQUIPMENT ORDERS: ADAPTIVE EQUIPMENT NEEDED: None Physical Therapy For: Evalulation/Treatment Occupational Therapy For: Evaluation/Treatment DISCHARGE MEDICATIONS: Home Meds Active Scripts Potassium Chloride (POTASSIUM CHLORIDE) 20 Meq Tablet.er, 20 MEQ PO BID for hypokalemia for 10 Days, #20 TAB.SR Prov:MOISE PRATT MD 06/26/19 Nystatin (NYSTATIN) 1 Each Powder.ea., 1 EACH MC BID PRN for andidiasis for 10 Days, #20 EACH Prov:MOISE PRATT MD 06/26/19 Multivitamin (MULTIVITAMINS) 1 Each Tablet, 1 TAB PO DAILY for wounds, #90 TAB 3 Refills Prov:MOISE PRATT MD 06/26/19 Ascorbic Acid (ASCORBIC ACID) 500 Mg Tablet, 500 MG PO BID for wounds for 10 Days, #20 TAB Prov:MOISE PRATT MD 06/26/19 Lgqewdxzsxbu-Jseb-Atcrkuse,Iso (ZOSYN 3.375 GM PRE MIX-BAG) 3.375 Gm/50 Ml Froz.piggy, 3.375 GM IV Q8H for cellulitis for 10 Days, EACH Prov:MOISE PRATT MD 06/26/19 Reported Medications Potassium Chloride (POTASSIUM CHLORIDE) 20 Meq Tablet.er, 20 MEQ PO TID for supplement, TAB.SR 06/21/19 Pantoprazole Sodium (PROTONIX ) 40 Mg Tablet.dr, 40 MG PO DAILYAC for GERD, TAB 06/21/19 Ondansetron Hcl (ZOFRAN) 4 Mg Tablet, 4 MG IV Q4HRS PRN for NAUSEA/VOMITING, TAB 06/21/19 Nystatin (NYSTATIN) 15 Gm Cream..g., 1 JIMMIE TP BID for antifungal, #30 GM 06/21/19 Multivits,Ca,Minerals/Iron/FA (Thera M Plus Tablet) 1 Each Tablet, 1 EACH PO DAILY for vitamin, TAB 06/21/19 Lisinopril (LISINOPRIL) 20 Mg Tablet, 1 TAB PO DAILY for blood pressure, #30 TAB 5 Refills 06/21/19 L. Rhamnosus GG/Inulin (Culturelle Probiotics Capsule) 1 Each Capsule, 1 EACH PO BID for probiotic, CAP 06/21/19 Hydrocodone Bit/Acetaminophen (HYDROCODONE-APAP 5-325 ) 1 Tab Tablet, 1 TAB PO PRN Q6HRS PRN for PAIN, TAB 0 Refills 06/21/19 Enoxaparin Sodium (LOVENOX) 40 Mg/0.4 Ml Disp.syrin, 40 MG SQ DAILY for ANTI- COAGULANT, DIS.SYR 06/21/19 Ascorbic Acid (ASCORBIC ACID) 500 Mg Tablet, 500 MG PO BID for vitamin, TAB 06/21/19 MOISE PRATT MD Jun 26, 2019 09:45
--- NOTE | 2019-06-26 10:24 | DS ---
DATE OF DISCHARGE: HOSPITAL COURSE: The patient's is a 68-year-old female patient who was originally seen at [facility] where she presented with marked weakness, pain in her right knee and right ankle as well as left shoulder. She has not been eating or drinking. She has been sitting in her wheelchair for almost 10 days. She was evaluated in the Emergency Room, was found to have large side gluteal decubitus ulcer. She was incontinent of urine. She has several intertriginous candidiasis under her breast around umbilical area as well as the groin and perineal area. She has been unable to walk, so we did x-rays of her right ankle, knees as well as lumbar spine and pelvic CT scan. The pelvic CT scan showed that there is suspected nondisplaced fracture involving her basicervical left femur. For further characterization, MRI was recommended. Therefore, a decision was made to transfer her to [facility] to consult orthopedic surgeon to arrange for her to have a nuclear bone scan or MRI to characterize the fracture. Her D-dimer was elevated and CT angio of the chest showed that she has numerous subcentimeter pulmonary nodules in the lungs, predominantly at the lung bases measuring up to 5 mm. There is no pleural effusion or pleural thickening. There is cholelithiasis. We did actually tuberculin test, it was negative and QuantiFERON test was done also and ultimately came back negative. She was kept on isolation and she was seen by Infectious Disease as well as the orthopedic surgeon and pmp project manager. Dr. Charles did not feel that the patient has any hip fracture and did not recommend any further characterization by MRI. Her QuantiFERON test was negative, so she was taken off the isolation. She continued to be on antibiotic for cellulitis as well as wound care for her right gluteal decubitus ulcer. It was also markedly debilitated and she has severe protein-calorie malnutrition and therefore, a decision was made to transfer her to [facility] to continue with IV antibiotic, wound care, nutritional support and to start the process of physical and occupational therapy. PHYSICAL EXAMINATION: GENERAL: When I saw her today, she looked well and was clearly in no apparent respiratory distress, pale, no jaundice, cyanosis or thyromegaly. No jugular venous distention. No lower limb edema. VITAL SIGNS: Her heart rate was 66, blood pressure was 169/86, temperature was 98.4, respiratory rate was 14 and oxygen saturation was 97% on room air. HEAD, EYES, EARS, NOSE AND THROAT: Normocephalic, atraumatic. NECK: Supple. HEART: Showed normal first and second heart sounds. No gallop, rub or murmur. CHEST: Clear to auscultation. No crepitation or rhonchi. ABDOMEN: Distended, soft, nontender. NEUROLOGIC: She is definitely more awake, alert, responding appropriately. All cranial nerves are intact. She moves upper extremities to much good extent than lower extremities, she is mostly bed bound. She has large right gluteal decubitus ulcer covered with wound VAC. She has an indwelling Grimm catheter. She has intertriginous candidiasis under her breasts around the umbilical area in the groin and perianal area. Her intake over the last 24 hours was 3400, output was 4700. LABORATORY DATA: Showed a serum sodium 143, potassium 4.3, chloride 110, bicarbonate 25, anion gap of 8, BUN 9, creatinine 0.8, estimated GFR was 71 mL per minute. Her glucose was 83, calcium was 8.7. Her white cell count was 10,000, hemoglobin 10, hematocrit 30, MCV 88 and platelet count 393,000. DISCHARGE MEDICATIONS: She was [facility] to [facility] to continue with ascorbic acid 500 mg twice a day, multivitamin 1 tablet once a day, nystatin powder applied topically to affected areas twice a day, piperacillin and tazobactam 3.375 g IV q.8 hourly, potassium chloride 20 mEq twice a day. She should also continue on Lovenox 40 mg subcutaneously once a day, hydrocodone/APAP 5/325 one tablet every 6 hours, Culturelle probiotic capsule 1 capsule twice a day, lisinopril 20 mg once a day, multivitamin with mineral 1 tablet once a day, nystatin, ondansetron, Zofran 4 mg IV every 4 hours, Protonix 40 mg once a day and potassium chloride twice a day. FINAL DISCHARGE DIAGNOSES: 1. Questionable left nondisplaced femoral fracture for which she was seen by Dr. Charles and clinically she has no evidence of fracture. 2. Open multiple pulmonary nodules in both upper lobes. The patient lived in [place], her tuberculin test was negative and QuantiFERON test was negative. She is now off isolation. 3. She has large gluteal decubitus ulcer with surrounding cellulitis for which she was on IV vancomycin, Zosyn and Diflucan. 4. She has severe pain in her right knee and ankle joint and degenerative disk disease. However, she is not a candidate for spinal epidural steroid injection for the time being. 5. Intertriginous candidiasis largely resolved. 6. Hypertension. MOISE PRATT MD DR: HANS/dania JOB#: [id number] / [id number]
--- NOTE | 2019-06-26 10:43 | PDOC ---
Infectious Disease Note Subjective Subjective Right knee feeling better, less pain Wants to get going on rehab as to return home KELLEY Denies F/C/N/V/SOA ROS ROS no n/v/d/ Vital Sign Vital Signs Vital Signs Date Time Temp Pulse Resp B/P (MAP) Pulse Ox O2 Delivery O2 Flow Rate FiO2 06/26/19 09:05 Room Air 06/26/19 09:05 66 169/86 06/26/19 07:00 98.4 14 97 98.4 Physical Exam PHYSICAL EXAM GENERAL: Propped up in bed, alert, smiling HEENT: Oral cavity clear. [place] NECK: Supple. LUNGS: Clear to auscultation. HEART: S1, S2. ABDOMEN: Obese, soft, nontender with bowel sounds present. GENITOURINARY: Indwelling Grimm in place. EXTREMITIES: No gross edema or cyanosis. Right knee wo redness or warmth - legs with some contraction that improves some with POM SKIN: Warm to touch. Right gluteal/ischial wound VAC in place. NEUROLOGIC: Alert, oriented x 3. LUE-PICC without signs of any complications. Objective Assessment Pulmonary nodules predominantly at the lung apices. PPD and QuantiFERON neg Unstageable right gluteal pressure wound, POA. ESR 60. Pelvic CT showed no evidence osteo. Rosi intertrigo - improved with Nystatin powder Fever - better Leukocytosis (14.4) improved Spinal stenosis Generalized weakness Anemia Right knee pain Plan Plan of Care Zosyn for now. - Probiotics Crypto & Histo Ag pending Wound care team following Continue nystatin powder Appreciate pulm input. PT/OT ok to go to rehab ZAK DE LOS SANTOS MD Jun 26, 2019 10:43
[2019-06-26 11:00] VITALS: BP 159/86
--- NOTE | 2019-06-26 11:30 | NUR ---
SS following up with discharge planning. Discharge orders received for [facility]. Bed available at [facility]. SS phoned and faxed discharge orders to [facility], ; fax [phone]. Pt will discharge today and go to [facility] at 1300 via [facility] ambulance. Pt, pt's RN, and pt's spouse notified.
--- NOTE | 2019-06-26 13:30 | NUR ---
Pt discharged to [facility]. Called and gave report to Rosalia. PICC in place. Wound pictures taken and dressing changed. All belongings were packed and taken with her. EMS assisted pt to stretcher.
== END 2019-06-26 13:00 | DRG 592 ==
LOC: 4 NORTH 22:15
PROVIDERS: ADMIT Internal Medicine; ATTEND Internal Medicine
DX: L89.154 Pressure ulcer of sacral region, stage 4 (principal); E43 Unspecified severe protein-calorie malnutrition; L03.312 Cellulitis of back [any part except buttock and flank]; L89.314 Pressure ulcer of right buttock, stage 4; B37.2 Candidiasis of skin and nail; R32 Unspecified urinary incontinence; M48.061 Spinal stenosis, lumbar region without neurogenic claudication; K80.20 Calculus of gallbladder without cholecystitis without obstruction; I10 Essential (primary) hypertension; R91.8 Other nonspecific abnormal finding of lung field; Z99.3 Dependence on wheelchair; Z90.49 Acquired absence of other specified parts of digestive tract; Z68.27 Body mass index [BMI] 27.0-27.9, adult; D64.9 Anemia, unspecified
CPT/HCPCS: 36415; 80048; 80053; 85025; 86698; 87641; 87899; J1650; J2543; J3370; J7030; J7050; 97110; 97530; G0378

== ENCOUNTER 2021-08-20 08:10 | Inpatient (IN) | payer OTHER ==
[~2021-08-20] VITALS: Ht 157.5 cm; Wt 61.3 kg
[~2021-08-20 08:10] MED LIST: ACET325T9 PO; AMOX1TAB10 PO; ASCO500T3 PO; ENOX40DI SQ; HYDR-2761 PO; L. R1CAP6 PO; LISI20TA18 PO; MULT-445 PO; MULT-638 PO; NYST15CR TP; NYST1POW5 MC; ONDA4TAB7 IV; PANT40TA77 PO; PIPE3.377 IV; POTA20TA4 PO
--- NOTE | 2021-08-20 08:24 | PHYS DOC ---
Past Medical History Smoking Status: Never Smoker General Adult EDM: Chief Complaint: NAUSEA/VOMITING/DIARRHEA HPI: HPI: 70-year-old female past medical history of spinal stenosis/wheelchair-bound, hypertension, decubitus ulcers, osteoarthritis and mild cognitive impairment, presents to the ED from shelter with complaints of shortness of breath after patient had multiple episodes of nausea and nonbloody nonbilious vomiting. Cannot recall last BM. Patient reports she has received the Covid vaccine. Denies any associated trauma, head injury or fall out of bed/wheelchair. She denies any associated fever, chills, abdominal pain, diarrhea, sore throat or fatigue. Review of Systems: Review of Systems: Constitutional: Denies fever or chills. [] Eyes: Denies change in visual acuity. [] HENT: Denies nasal congestion or sore throat. [] Respiratory: Denies cough or shortness of breath. [] Cardiovascular: Denies chest pain or edema. [] GI: Denies abdominal pain, bloody stools or diarrhea. [] : Denies dysuria or hematuria Musculoskeletal: Denies back pain or joint pain. [] Integument: Denies rash or diaphoresis Neurologic: Denies headache, focal weakness or sensory changes. [] Endocrine: Denies polyuria or polydipsia. [] Lymphatic: Denies swollen glands. [] Psychiatric: Denies depression or anxiety. [] Heart Score: C/O Chest Pain: No Risk Factors: Risk Factors: DM, Current or recent (<one month) smoker, HTN, HLP, family history of CAD, obesity. Risk Scores: Score 0 - 3: 2.5% MACE over next 6 weeks - Discharge Home Score 4 - 6: 20.3% MACE over next 6 weeks - Admit for Clinical Observation Score 7 - 10: 72.7% MACE over next 6 weeks - Early Invasive Strategies Allergies: Allergies: Allergies Coded Allergies Type Severity Reaction Last Updated Verified No Known Drug Allergies 06/21/19 No Physical Exam: PE: Constitutional: Afebrile, active emesis, nontoxic-appearing, hard of hearing HENT: Normocephalic, atraumatic, slightly dry mucous membranes Eyes: PERRLA, EOMI, conjunctiva normal, no discharge, Neck: Normal range of motion, supple, no midline neck pain, no nuchal rigidity or meningismus Cardiovascular: S1/2 present, heart rate ranges from the 90s to low 100s Lungs & Thorax: Speaking in full sentences, bilateral equal chest rise, no tachypnea or increased work of breathing Abdomen: soft, no tenderness, no rigidity or guarding, yellow emesis in basin Skin: Warm, dry, Back: No midline tenderness, no CVA tenderness, mild skin breakdown/stage 1 decubitus ulcer over lower buttocks and right upper thigh w/no rash or crepitus (pt rolled on each side and back/sacrum examined by myself and rn) Extremities: No tenderness, no cyanosis, contracted legs, warm legs/ankles, cannot palpate or doppler L or R dp/pt pulses, red/purple regions of skin of toes/plantar aspect of feet-cold toes Neurologic: Alert and oriented X 3, normal motor function, normal sensory function, no focal deficits noted. [] Psychologic: Affect normal, calm mood EKG: EKG: Sinus rhythm 91 bpm, left axis deviation, normal intervals, no T wave inversions, no ST elevation or ST depression Radiology/Procedures: Radiology/Procedures: IMAGING REPORT Signed PATIENT: KATHLEEN CULP ACCOUNT: [id number] : 1950 LOCATION: ER AGE: 70 SEX: F EXAM STATUS: REG ER ORD. PHYSICIAN: LG SEWELL DO REASON: no dp/pt pulses PROCEDURE: DUPLEX LOWER EXTREMITY BILAT BILATERAL LOWER EXTREMITY DUPLEX ARTERY ULTRASOUND Indication: Reason: no dp/pt pulses / Spl. Instructions: / History: Comparison: None. Procedure: Real-time grayscale, color flow Doppler, and Doppler spectral waveform analysis of the arterial system of the lower extremity is performed. Findings: Right: There are triphasic waveforms throughout the right lower extremity with the exception of biphasic waveforms of the profunda artery and the calf arteries. The peroneal artery is not visualized. There is no elevated peak systolic velocity. Arterial calcifications are noted. Left: There are biphasic waveforms throughout the left lower extremity with the exception of triphasic common femoral artery, profunda artery, and proximal and mid superficial femoral artery. There is no significantly elevated peak systolic velocity. The peroneal artery is not visualized. Arterial calcifications are noted. IMPRESSION: 1. The bilateral peroneal arteries are not visualized which could be technical or due to slow flow or occlusion. 2. There are predominantly biphasic waveforms throughout both lower extremities. Electronically signed by: Fadi Joseph MD (08/20/2021 10:37 AM) [id number] DICTATED and SIGNED BY: FADI JOSEPH MD DATE: 08/20/21 [id number] IMAGING REPORT Signed PATIENT: KATHLEEN CULP ACCOUNT: [id number] : 1950 LOCATION: ER AGE: 70 SEX: F EXAM STATUS: PRE ER ORD. PHYSICIAN: LG SEWELL DO REASON: n/v, soa PROCEDURE: PORTABLE CHEST 1V EXAM: Chest, single view. HISTORY: Nausea and vomiting. Shortness of breath. COMPARISON: None. FINDINGS: A frontal view of the chest is obtained. There is diffuse interstitial infiltrate likely superimposed on chronic interstitial changes. There is no pleural effusion or pneumothorax. There is cardiomegaly. IMPRESSION: 1. Diffuse interstitial infiltrate likely superimposed on chronic interstitial changes. 2. Cardiomegaly. Electronically signed by: Reina Quiros MD (08/20/2021 9:20 AM) [id number] DICTATED and SIGNED BY: REINA QUIROS MD DATE: 08/20/21 [id number] IMAGING REPORT Signed PATIENT: KATHLEEN CULP ACCOUNT: [id number] : 1950 LOCATION: ER AGE: 70 SEX: F EXAM STATUS: REG ER ORD. PHYSICIAN: LG SEWELL DO REASON: n/v PROCEDURE: CT HEAD WO CONTRAST CT HEAD/BRAIN WO Date: 08/20/2021 12:03 PM Clinical Indication: Nausea and vomiting Comparison: 11/06/2019. Technique: 5 mm axial tomographic images were obtained of the head without contrast. These were viewed on brain and bone windows. One or more of the following dose reduction techniques were utilized: Automated exposure control (AEC), Adjustment of mA and/or kV according to patient size, Use of iterative reconstruction technique such as ASiR, CT scan done according to ALARA and image gently/image wisely Findings: Moderate generalized cerebral and cerebellar volume loss. Extensive nonspecific periventricular hypoattenuation, most commonly seen with chronic small vessel ischemic disease. Calcified atherosclerosis of the bilateral cavernous and paraclinoid internal carotid arteries and intracranial vertebral arteries. No intra- or extra-axial mass or fluid collection. No acute hemorrhage. The ventricles are normal in size, shape, and morphology. The thomas-white matter junction is normal. The subarachnoid cisterns are patent. The visualized paranasal sinuses are normal. The visualized portions of the orbits and globes are normal. The mastoid air cells are clear. The train controller topogram shows no lytic lesion or fracture. Impression: No acute intracranial process. Moderate cerebral volume loss. Extensive chronic small vessel ischemic disease. Electronically signed by: Cuauhtemoc Snell MD (08/20/2021 12:22 PM) [id number] DICTATED and SIGNED BY: CUAUHTEMOC SNELL MD DATE: 08/20/21 [id number] 0 IMAGING REPORT Signed PATIENT: KATHLEEN CULP ACCOUNT: [id number] : 1950 LOCATION: ER AGE: 70 SEX: F EXAM STATUS: REG ER ORD. PHYSICIAN: LG SEWELL DO REASON: n/v PROCEDURE: CT ABD PELV W/ IV CONTRST ONLY EXAM: CT Abdomen and Pelvis with IV contrast CLINICAL HISTORY: Nausea/vomiting COMPARISON: none TECHNIQUE: Helical CT of the abdomen and pelvis was performed following the administration of intravenous contrast. Axial, coronal and sagittal reformatted images were generated. PQRS compliance statement - One or more of the following individualized dose reduction techniques were utilized for this study: 1. Automated exposure control 2. Adjustment of the mA and/or kV according to patient size 3. Use of iterative reconstruction technique FINDINGS: Lower Chest: Groundglass opacities and linear opacities lower lobes may represent atelectasis or atypical infectious/inflammatory process. Coronary calcifications are seen. Abdomen and Pelvis: Hepatic hypoattenuation, fatty liver. Spleen is unremarkable. Thickening about the gallbladder. Small gallstones are seen including at the gallbladder neck. Pancreas and adrenal glands are unremarkable. CBD measures 12 mm in diameter. Symmetric nephrograms. Nonobstructing right lower pole renal calculus. Right upper pole renal cyst. No hydronephrosis. No hydroureter. Bladder is unremarkabl e. Moderate colonic stool content is seen. No small or large bowel dilatation. No bowel obstruction. No abdominal or pelvic ascites. Aorta is normal in caliber. Aortic calcifications are seen. Retroaortic left renal vein. No abdominal or pelvic lymphadenopathy. No abdominal or pelvic ascites. Bones: Height loss of the T9 vertebral body. Decreased bone mineral density. Multilevel disc bulges are seen. IMPRESSION: 1. Diffuse thickening about the gallbladder with calcified gallstone at the gallbladder neck, suspicious for acute cholecystitis and can be correlated with ultrasound. 2. Age-indeterminate height loss of the T9 vertebral body 3. Mild dilation of the common bile duct. 4. Hepatic hypoattenuation, fatty liver Findings discussed with Dr. Sewell at 08/20/2021 12:32 PM. FOR INTERNAL CODING PURPOSES RESULT CODE: (C) Course & Med Decision Making: Course & Med Decision Making Pertinent Labs and Imaging studies reviewed. (See chart for details) Patient presented to the ED with nausea and vomiting, she denied any abdominal pain. I received a phone call from radiology that patients' CT scan is concerning for acute cholecystitis. On repeat exam pt still denies abdominal pain, patient's nausea and vomiting is well controlled. Patient does grimace with right upper quadrant pain but has no rest of inspiration, negative Bhatia sign. I spoke to Dr. Clarke who was informed that patient did have abdominal pain at the shelter. Pt meets sirs criteria, lipase and covid negative. Dr. Clarke requested IVFs and zosyn q8hrs, concern for aspiration pneumonia. Will admit for further medical management with surgery consulted. The patient has been stabilized within the capability of the emergency department. The patient will be transported for further care and management or will be moved to an observation or inpatient service. I have communicated with the staff or medical practitioner taking over this patient's care. Nelson Disclaimer: Nelson Disclaimer: This electronic medical record was generated, in whole or in part, using a voice recognition dictation system. Departure Departure Impression: Primary Impression: Acute cholecystitis Additional Impression: Nausea and vomiting Disposition: ADMITTED INPATIENT Admitting Physician: Madi. Pedraza Condition: GUARDED Referrals: MICHAEL LAMA MD (PCP) VOLG MARIE DO Aug 20, 2021 08:24
[2021-08-20] MEDS ORDERED: IV NORMAL SALINE 1000ML BAG 1,000 ML IV SCH (08:30)
[2021-08-20] MEDS ORDERED: FAMOTIDINE 20 MG/2 ML VIAL IVP ONE (08:30)
[2021-08-20] MEDS ORDERED: ONDANSETRON ODT 4 MG TAB.RAPDIS. PO ONE (08:30)
[2021-08-20] MEDS ORDERED: ONDANSETRON PF 4 MG/2 ML VIAL. IVP ONE (08:30)
--- NOTE | 2021-08-20 09:22 | RAD ---
EXAM: Chest, single view. HISTORY: Nausea and vomiting. Shortness of breath. COMPARISON: None. FINDINGS: A frontal view of the chest is obtained. There is diffuse interstitial infiltrate likely edwards perimposed on chronic interstitial changes. There is no pleural effusion or pneumothorax. There is ca rdiomegaly. IMPRESSION: 1. Diffuse interstitial infiltrate likely superimposed on chronic interstitial changes. 2. Cardiomegaly. Electronically signed by: Reina Morgan MD (08/20/2021 9:20 AM) [id number]
[2021-08-20 09:27] LABS: BASO # 0.1 x10^3/uL (0.0-0.2); BASO % 1 % (0-3); EOS # 0.2 x10^3/uL (0.0-0.7); EOS % 2 % (0-3); HEMATOCRIT 39.8 % (36.0-47.0); HEMOGLOBIN 13.3 g/dL (12.0-15.5); LYMPH # 1.4 x10^3/uL (1.0-4.8); LYMPH % 12 % (24-48); MEAN CORPUSCULAR HEMOGLOBIN 30 pg (25-35); MEAN CORPUSCULAR HGB CONC 33 g/dL (31-37); MEAN CORPUSCULAR VOLUME 89 fL (79-100); MONO # 0.8 x10^3/uL (0.0-1.1); MONO % 6 % (0-9); NEUT # 9.9 x10^3/uL (1.8-7.7); NEUT % 79 % (31-73); PLATELET COUNT 352 x10^3/uL (140-400); RED BLOOD COUNT 4.47 x10^6/uL (3.50-5.40); RED CELL DISTRIBUTION WIDTH 14.3 % (11.5-14.5); WHITE BLOOD COUNT 12.5 x10^3/uL (4.0-11.0)
[2021-08-20 09:30] LABS: INFLUENZA A PATIENT NEGATIVE (NEGATIVE); INFLUENZA B PATIENT NEGATIVE (NEGATIVE)
--- NOTE | 2021-08-20 10:39 | RAD ---
BILATERAL LOWER EXTREMITY DUPLEX ARTERY ULTRASOUND Indication: Reason: no dp/pt pulses / Spl. Instructions: / History: Comparison: None. Procedure: Real-time grayscale, color flow Doppler, and Doppler spectral waveform analysis of the art erial system of the lower extremity is performed. Findings: Right: There are triphasic waveforms throughout the right lower extremity with the exception of biphasic wav eforms of the profunda artery and the calf arteries. The peroneal artery is not visualized. There is no elevated peak systolic velocity. Arterial calcifications are noted. Left: There are biphasic waveforms throughout the left lower extremity with the exception of triphasic comm on femoral artery, profunda artery, and proximal and mid superficial femoral artery. There is no sign ificantly elevated peak systolic velocity. The peroneal artery is not visualized. Arterial calcificat ions are noted. IMPRESSION: 1. The bilateral peroneal arteries are not visualized which could be technical or due to slow flow o r occlusion. 2. There are predominantly biphasic waveforms throughout both lower extremities. Electronically signed by: Fadi Joseph MD (08/20/2021 10:37 AM) [id number]
[2021-08-20 11:59] LABS: CALCIUM 8.7 mg/dL (8.5-10.1); CREATININE 0.8 mg/dL (0.6-1.0); GFR 71.1
[2021-08-20 12:04] LABS: ALBUMIN 3.4 g/dL (3.4-5.0); DIRECT BILIRUBIN 0.1 mg/dL (0.0-0.2); TOTAL BILIRUBIN 0.3 mg/dL (0.2-1.0); TOTAL PROTEIN 8.4 g/dL (6.4-8.2)
[2021-08-20] MEDS ORDERED: IOHEXOL 300 MG/ML 100ML VIAL. IV ONE (12:15)
[2021-08-20] MEDS ORDERED: CONTRAST GIVEN. MC PRN (12:15)
--- NOTE | 2021-08-20 12:24 | RAD ---
CT HEAD/BRAIN WO Date: 08/20/2021 12:03 PM Clinical Indication: Nausea and vomiting Comparison: 11/06/2019. Technique: 5 mm axial tomographic images were obtained of the head without contrast. These were view ed on brain and bone windows. One or more of the following dose reduction techniques were utilized: A utomated exposure control (AEC), Adjustment of mA and/or kV according to patient size, Use of iterati ve reconstruction technique such as ASiR, CT scan done according to ALARA and image gently/image parsons ly Findings: Moderate generalized cerebral and cerebellar volume loss. Extensive nonspecific periventricular hypoa ttenuation, most commonly seen with chronic small vessel ischemic disease. Calcified atherosclerosis of the bilateral cavernous and paraclinoid internal carotid arteries and intracranial vertebral arter ies. No intra- or extra-axial mass or fluid collection. No acute hemorrhage. The ventricles are normal in size, shape, and morphology. The thomas-white matter junction is normal. The subarachnoid cisterns are patent. The visualized paranasal sinuses are normal. The visualized portions of the orbits and globes are no rmal. The mastoid air cells are clear. The sales host topogram shows no lytic lesion or fracture. Impression: No acute intracranial process. Moderate cerebral volume loss. Extensive chronic small vessel ischemic disease. Electronically signed by: Willie Snell MD (08/20/2021 12:22 PM) [id number]
--- NOTE | 2021-08-20 12:35 | RAD ---
EXAM: CT Abdomen and Pelvis with IV contrast CLINICAL HISTORY: Nausea/vomiting COMPARISON: none TECHNIQUE: Helical CT of the abdomen and pelvis was performed following the administration of intrave nous contrast. Axial, coronal and sagittal reformatted images were generated. PQRS compliance statement - One or more of the following individualized dose reduction techniques wer e utilized for this study: 1. Automated exposure control 2. Adjustment of the mA and/or kV according to patient size 3. Use of iterative reconstruction technique FINDINGS: Lower Chest: Groundglass opacities and linear opacities lower lobes may represent atelectasis or atypical infectio us/inflammatory process. Coronary calcifications are seen. Abdomen and Pelvis: Hepatic hypoattenuation, fatty liver. Spleen is unremarkable. Thickening about the gallbladder. Small gallstones are seen including at the gallbladder neck. Pancreas and adrenal glands are unremarkable. CBD measures 12 mm in diameter. Symmetric nephrograms. Nonobstructing right lower pole renal calculus. Right upper pole renal cyst. N o hydronephrosis. No hydroureter. Bladder is unremarkable. Moderate colonic stool content is seen. No small or large bowel dilatation. No bowel obstruction. No abdominal or pelvic ascites. Aorta is normal in caliber. Aortic calcifications are seen. Retroaortic left renal vein. No abdominal or pelvic lymphadenopathy. No abdominal or pelvic ascites. Bones: Height loss of the T9 vertebral body. Decreased bone mineral density. Multilevel disc bulges are seen . IMPRESSION: 1. Diffuse thickening about the gallbladder with calcified gallstone at the gallbladder neck, suspic ious for acute cholecystitis and can be correlated with ultrasound. 2. Age-indeterminate height loss of the T9 vertebral body 3. Mild dilation of the common bile duct. 4. Hepatic hypoattenuation, fatty liver Findings discussed with Dr. Aguirre at 08/20/2021 12:32 PM. FOR INTERNAL CODING PURPOSES RESULT CODE: (C) Electronically signed by: Tray Perea MD (08/20/2021 12:32 PM) ZIATAINA
[2021-08-20] MEDS ORDERED: ONDANSETRON PF 4 MG/2 ML VIAL. IVP PRN (12:45)
[2021-08-20 13:25] VITALS: BP 155/100
[2021-08-20] MEDS: PIPERACILLIN/TAZOBACTAM 3.375 GM in IV NORMAL SALINE 50ML 50 ML IV SCH ×2 (13:30→17:40)
--- NOTE | 2021-08-20 14:00 | NUR ---
Patient refused skin assessment and picture of wound on buttocks.
[2021-08-20 15:00] VITALS: BP 112/92
[2021-08-20] MEDS ORDERED: MELA5TAB20 PO (15:08)
[2021-08-20] MEDS ORDERED: ESCITALOPRAM OX10 MG PO (15:08)
[2021-08-20] MEDS ORDERED: LOPE2CAP3 PO (15:08)
[2021-08-20] MEDS ORDERED: MAGN400O7 PO (15:08)
[2021-08-20] MEDS ORDERED: CHOL500021 PO (15:13)
[2021-08-20] MEDS ORDERED: QUET25TA5 PO ×2 (15:13)
[2021-08-20] MEDS ORDERED: ACET325T21 PO ×2 (15:13)
--- NOTE | 2021-08-20 15:31 | PDOC2 ---
CONSULT Date of Consult Date of Consult DATE: 08/20/21 TIME: 15:25 History of Present Illness Reason for Visit: The patient is a 70 year old female who was brought to the ER from her snf due to vomiting. She is a somewhat poor historian and states she feels well and wants to leave the hospital. She admits to some problems with vomiting earlier in the day. She denies abdominal pain. Past Medical History Cardiovascular: HTN CENTRAL NERVOUS SYSTEM: Dementia Renal/: Urinary Incontinence Past Surgical History Past Surgical History: Appendectomy, Total hip replacement Family History Family History: Family History Unknown Social History ALCOHOL: none Drugs: None Lives: with Family Current Problem List Problem List Problems Medical Problems: (1) Acute cholecystitis Status: Acute (2) Nausea and vomiting Status: Acute Current Medications Current Medications Current Medications Sodium Chloride 1,000 ml @ 1,000 mls/hr Q1H IV Last administered on 08/20/21at 08:52; Start 08/20/21 at 08:30; Stop 08/20/21 at 09:29; Status DC Ondansetron HCl (Zofran Odt) 4 mg 1X ONCE PO Last administered on 08/20/21at 08:27; Start 08/20/21 at 08:30; Stop 08/20/21 at 08:31; Status DC Ondansetron HCl (Zofran) 4 mg 1X ONCE IVP Last administered on 08/20/21at 08:53; Start 08/20/21 at 08:30; Stop 08/20/21 at 08:31; Status DC Famotidine (Pepcid Vial) 20 mg 1X ONCE IVP Last administered on 08/20/21at 08:52; Start 08/20/21 at 08:30; Stop 08/20/21 at 08:31; Status DC Iohexol (Omnipaque 300 Mg/ml) 75 ml 1X ONCE IV Last administered on 08/20/21at 12:21; Start 08/20/21 at 12:15; Stop 08/20/21 at 12:16; Status DC Info (CONTRAST GIVEN -- Rx MONITORING) 1 each PRN DAILY PRN MC SEE COMMENTS; Start 08/20/21 at 12:15; Stop 08/22/21 at 12:14 Piperacillin Sod/ Tazobactam Sod 3.375 gm/Sodium Chloride 50 ml @ 100 mls/hr Q6HRS IV ; Start 08/20/21 at 13:30 Ondansetron HCl (Zofran) 4 mg PRN Q8HRS PRN IVP NAUSEA/VOMITING; Start 08/20/21 at 12:45; Stop 08/21/21 at 12:44 Sodium Chloride 1,000 ml @ 75 mls/hr [id number] IV ; Start 08/20/21 at 12:45; Stop 08/21/21 at 12:44 Active Scripts Active Amox Tr-K Clv 500-125 Mg Tab (Amoxicillin/Potassium Clav) 1 Each Tablet 1 Tab PO BID 10 Days Tylenol (Acetaminophen) 325 Mg Tablet 650 Mg PO PRN Q4HRS PRN 30 Days Potassium Chloride (Potassium Chloride) 20 Meq Tablet.er 20 Meq PO BID 10 Days Nystatin 1 Each Powder.ea. 1 Each MC BID PRN 10 Days Multivitamins (Multivitamin) 1 Each Tablet 1 Tab PO DAILY Ascorbic Acid 500 Mg Tablet 500 Mg PO BID 10 Days Reported Acetaminophen 325 Mg Tablet 650 Mg PO BID Acetaminophen 325 Mg Tablet 650 Mg PO PRN Q6HRS PRN D3-50 (Cholecalciferol (Vitamin D3)) 50,000 Unit Capsule 5,000 Unit PO DAILY Seroquel (Quetiapine Fumarate) 25 Mg Tablet 25 Mg PO HS Seroquel (Quetiapine Fumarate) 25 Mg Tablet 12.5 Mg PO DAILY Milk Of Magnesia (Magnesium Hydroxide) 400 Mg/5 Ml Oral.susp 400 Mg PO PRN Q24HRS PRN Melatonin 5 Mg Tab.rapdis 1 Tab PO QHS 30 Days Anti-Diarrheal (Loperamide Hcl) 2 Mg Capsule 2 Mg PO PRN Q12HR PRN Escitalopram Oxalate 10 Mg Tablet 10 Mg PO DAILY Protonix (Pantoprazole Sodium) 40 Mg Tablet.dr 40 Mg PO DAILYAC Zofran (Ondansetron Hcl) 4 Mg Tablet 4 Mg IV Q4HRS PRN Thera M Plus Tablet (Multivits,Ca,Minerals/Iron/FA) 1 Each Tablet 1 Each PO DAILY Culturelle Probiotics Capsule (L. Rhamnosus GG/Inulin) 1 Each Capsule 1 Each PO BID Ascorbic Acid 500 Mg Tablet 500 Mg PO BID Allergies Allergies: Coded Allergies: No Known Drug Allergies (Unverified , 06/21/19) ROS Review of System poor historian, admits to vomiting only Physical Exam General: Alert, Oriented X3, No acute distress HEENT: Atraumatic Lungs: Clear to auscultation Heart: Regular rate, Normal S1 Abdomen: Soft (she reports no tenderness with palpation) Extremities: No clubbing, No cyanosis Skin: No rashes, No breakdown Neuro: Normal speech Vitals VITALS Vital Signs Date Time Temp Pulse Resp B/P (MAP) Pulse Ox O2 Delivery O2 Flow Rate FiO2 08/20/21 13:00 92 21 143/81 (101) 97 Room Air 08/20/21 11:13 2.0 08/20/21 08:10 97.7 97.7 Labs Labs Laboratory Tests Test 08/20/21 08:25 08/20/21 08:45 08/20/21 09:01 08/20/21 11:05 Glucose (Fingerstick) 129 mg/dL (70-99) White Blood Count 12.5 x10^3/uL (4.0-11.0) Red Blood Count 4.47 x10^6/uL (3.50-5.40) Hemoglobin 13.3 g/dL (12.0-15.5) Hematocrit 39.8 % (36.0-47.0) Mean Corpuscular Volume 89 fL (79-100) Mean Corpuscular Hemoglobin 30 pg (25-35) Mean Corpuscular Hemoglobin Concent 33 g/dL (31-37) Red Cell Distribution Width 14.3 % (11.5-14.5) Platelet Count 352 x10^3/uL (140-400) Neutrophils (%) (Auto) 79 % (31-73) Lymphocytes (%) (Auto) 12 % (24-48) Monocytes (%) (Auto) 6 % (0-9) Eosinophils (%) (Auto) 2 % (0-3) Basophils (%) (Auto) 1 % (0-3) Neutrophils # (Auto) 9.9 x10^3/uL (1.8-7.7) Lymphocytes # (Auto) 1.4 x10^3/uL (1.0-4.8) Monocytes # (Auto) 0.8 x10^3/uL (0.0-1.1) Eosinophils # (Auto) 0.2 x10^3/uL (0.0-0.7) Basophils # (Auto) 0.1 x10^3/uL (0.0-0.2) Lactic Acid Level 1.3 mmol/L (0.4-2.0) Troponin I Quantitative < 0.017 ng/mL (0.000-0.055) NN-Nnm-G-Type Natriuretic Peptide 218 pg/mL (0-124) Influenza Type A Antigen Negative (NEGATIVE) Influenza Type B Antigen Negative (NEGATIVE) Sodium Level 140 mmol/L (136-145) Potassium Level 4.0 mmol/L (3.5-5.1) Chloride Level 104 mmol/L (98-107) Carbon Dioxide Level 26 mmol/L (21-32) Anion Gap 10 (6-14) Blood Urea Nitrogen 14 mg/dL (7-20) Creatinine 0.8 mg/dL (0.6-1.0) Estimated GFR (Cockcroft-Gault) 71.1 Glucose Level 108 mg/dL (70-99) Calcium Level 8.7 mg/dL (8.5-10.1) Total Bilirubin 0.3 mg/dL (0.2-1.0) Direct Bilirubin 0.1 mg/dL (0.0-0.2) Aspartate Amino Transf (AST/SGOT) 17 U/L (15-37) Alanine Aminotransferase (ALT/SGPT) 21 U/L (14-59) Alkaline Phosphatase 96 U/L (46-116) Creatine Kinase 33 U/L (26-192) Total Protein 8.4 g/dL (6.4-8.2) Albumin 3.4 g/dL (3.4-5.0) Lipase 81 U/L (73-393) Test 08/20/21 12:37 SARS-CoV-2 RNA (KIMBERLEE) Negative (Negative) SARS-CoV-2 Antigen (Rapid) Negative (NEGATIVE) Laboratory Tests Test 08/20/21 08:25 08/20/21 08:45 08/20/21 09:01 08/20/21 11:05 Glucose (Fingerstick) 129 mg/dL (70-99) White Blood Count 12.5 x10^3/uL (4.0-11.0) Red Blood Count 4.47 x10^6/uL (3.50-5.40) Hemoglobin 13.3 g/dL (12.0-15.5) Hematocrit 39.8 % (36.0-47.0) Mean Corpuscular Volume 89 fL (79-100) Mean Corpuscular Hemoglobin 30 pg (25-35) Mean Corpuscular Hemoglobin Concent 33 g/dL (31-37) Red Cell Distribution Width 14.3 % (11.5-14.5) Platelet Count 352 x10^3/uL (140-400) Neutrophils (%) (Auto) 79 % (31-73) Lymphocytes (%) (Auto) 12 % (24-48) Monocytes (%) (Auto) 6 % (0-9) Eosinophils (%) (Auto) 2 % (0-3) Basophils (%) (Auto) 1 % (0-3) Neutrophils # (Auto) 9.9 x10^3/uL (1.8-7.7) Lymphocytes # (Auto) 1.4 x10^3/uL (1.0-4.8) Monocytes # (Auto) 0.8 x10^3/uL (0.0-1.1) Eosinophils # (Auto) 0.2 x10^3/uL (0.0-0.7) Basophils # (Auto) 0.1 x10^3/uL (0.0-0.2) Lactic Acid Level 1.3 mmol/L (0.4-2.0) Troponin I Quantitative < 0.017 ng/mL (0.000-0.055) HN-Pmc-D-Type Natriuretic Peptide 218 pg/mL (0-124) Influenza Type A Antigen Negative (NEGATIVE) Influenza Type B Antigen Negative (NEGATIVE) Sodium Level 140 mmol/L (136-145) Potassium Level 4.0 mmol/L (3.5-5.1) Chloride Level 104 mmol/L (98-107) Carbon Dioxide Level 26 mmol/L (21-32) Anion Gap 10 (6-14) Blood Urea Nitrogen 14 mg/dL (7-20) Creatinine 0.8 mg/dL (0.6-1.0) Estimated GFR (Cockcroft-Gault) 71.1 Glucose Level 108 mg/dL (70-99) Calcium Level 8.7 mg/dL (8.5-10.1) Total Bilirubin 0.3 mg/dL (0.2-1.0) Direct Bilirubin 0.1 mg/dL (0.0-0.2) Aspartate Amino Transf (AST/SGOT) 17 U/L (15-37) Alanine Aminotransferase (ALT/SGPT) 21 U/L (14-59) Alkaline Phosphatase 96 U/L (46-116) Creatine Kinase 33 U/L (26-192) Total Protein 8.4 g/dL (6.4-8.2) Albumin 3.4 g/dL (3.4-5.0) Lipase 81 U/L (73-393) Test 08/20/21 12:37 SARS-CoV-2 RNA (KIMBERLEE) Negative (Negative) SARS-CoV-2 Antigen (Rapid) Negative (NEGATIVE) Images Images CT abdomen: IMPRESSION: 1. Diffuse thickening about the gallbladder with calcified gallstone at the gallbladder neck, suspicious for acute cholecystitis and can be correlated with ultrasound. 2. Age-indeterminate height loss of the T9 vertebral body 3. Mild dilation of the common bile duct. 4. Hepatic hypoattenuation, fatty liver Assessment/Plan Assessment/Plan 70 year old female with vomiting, denies abdominal pain, CT scan suggestive of acute cholecystitis. I discussed with her treatment for cholecystitis with laparoscopic cholecystectomy. She states that she is not interested in surgery and is hoping to be discharged soon. I explained the CT scan findings with her and indicated that if untreated cholecystitis is likely to worsen. She understands but states that since she is not having pain she doesn't want surgery at this time. No further recommendations. BREE HERNANDEZ MD Aug 20, 2021 15:30
[2021-08-20] MEDS ORDERED: DOCU100C28 PO (15:33)
[2021-08-20] MEDS ORDERED: BACL10TA PO (15:33)
[2021-08-20] MEDS ORDERED: FAMO20TA5 PO (15:33)
[2021-08-20] MEDS ORDERED: CYAN100031 PO (15:33)
[2021-08-20] MEDS ORDERED: MENT3.5O TP (15:33)
[2021-08-20] MEDS: IV NORMAL SALINE 1000ML BAG 1,000 ML IV SCH (17:40)
--- NOTE | 2021-08-20 18:17 | EKG ---
[facility] [address] [place] [address] Test Date: 2021-08-20 Test Time: 08:41:42 Pat Name: KATHLEEN CULP Department: Room: [facility] Gender: F Zoo Caretaker: : 1950 Requested By: LG SEWELL Order Number: [id number] Reading MD: Gino Bob Measurements Intervals Crooks Rate: 91 P: 28 DC: 158 QRS: -56 QRSD: 76 T: 30 QT: 358 QTc: 442 Interpretive Statements SINUS RHYTHM ABNORMAL LEFT AXIS DEVIATION LOW LIMB LEAD VOLTAGE QRS(T) CONTOUR ABNORMALITY CONSISTENT WITH INFERIOR INFARCT PROBABLY OLD ABNORMAL ECG RI6.01 No previous ECG available for comparison Electronically Signed On 08-21-2021 12:44:10 CDT by Gino Bob
[2021-08-20 19:00] VITALS: BP 132/87
[2021-08-20 23:00] VITALS: BP 138/91
[2021-08-21] MEDS: PIPERACILLIN/TAZOBACTAM 3.375 GM in IV NORMAL SALINE 50ML 50 ML IV SCH ×4 (00:09→11:58)
[2021-08-21 03:00] VITALS: BP 160/78
[2021-08-21] MEDS: IV NORMAL SALINE 1000ML BAG 1,000 ML IV SCH (03:27)
[2021-08-21] MEDS ORDERED: HYDROmorphone 2 MG/ML VIAL IVP PRN (06:00)
[2021-08-21] MEDS ORDERED: IV RINGERS,LACTATED 1000ML 1,000 ML IV SCH (06:00)
[2021-08-21] MEDS ORDERED: PROCHLORPERAZINE 10 MG/2 ML VIAL. IVP PRN (06:00)
[2021-08-21] MEDS ORDERED: MORPHINE SULFATE 2 MG/ML INJ. IVP PRN (06:00)
[2021-08-21] MEDS ORDERED: fentaNYL PF VIAL 100 MCG/2 ML VIAL IVP PRN ×2 (06:00)
--- NOTE | 2021-08-21 06:15 | NUR ---
Patient refused IVF ,IV Antibiotic,and wanting her IV access remove. Patient stated she will not have her surgery today or next day, she wanted her surgery be done on September.She also said, she is going home this am.
[2021-08-21 07:00] VITALS: BP 154/74
[2021-08-21] MEDS: NYSTATIN TOPICAL POWDER 15GM BOTTLE. TP SCH ×2 (08:36→21:00)
--- NOTE | 2021-08-21 10:16 | NUR ---
SW following. Discussed with RN. SW verified pt is from [facility], room air, NPO. Pt refusing surgery until September 15, refusing IV and other treatments. COVID-19 negative. RAHEL awaiting determination of plan. RAHEL will continue to follow.
--- NOTE | 2021-08-21 11:34 | HP ---
ADMIT DATE: 08/20/2021 HISTORY OF PRESENT ILLNESS: The patient is a 70-year-old female patient, a resident at [facility] in [place] who was brought to the Emergency Room of [facility] with a complaint of shortness of breath after the patient had multiple episodes of nausea and nonbloody, nonbilious vomiting. She has been vaccinated for COVID. Denied any other complaint, in particular denied any fever, chills, abdominal pain, diarrhea, sore throat or fatigue. She was extensively investigated in the Emergency Room, has had lab work and imaging studies. Her white cell count was high at 12,500. Her chemistry was mostly unremarkable and her lactic acid was only 1.3. CT scan of the abdomen and pelvis showed that she has diffuse thickening about the gallbladder with calcified gallstones in the gallbladder neck, suspicious for acute cholecystitis and can be correlated with ultrasound. She has age indeterminate height loss of T9 vertebral body, mild dilatation of the common bile duct and hepatic hypoattenuation and fatty liver, was admitted with acute cholecystitis with possible aspiration pneumonia. We started her on IV fluid, kept her n.p.o., continued her on piperacillin and tazobactam, and consulted the surgical team for further evaluation and treatment. PAST MEDICAL HISTORY: Significant for hypertension, severe degenerative disk disease, severe degenerative arthritis of both knees and severe spinal stenosis. PAST SURGICAL HISTORY: Unremarkable. ALLERGIES: She has no known drug allergies. MEDICATIONS: She is currently on following medication: She is on baclofen 10 mg 3 times a day, acetaminophen 650 mg every 6 hours, escitalopram oxalate 10 mg daily, quetiapine fumarate 12.5 mg daily, quetiapine fumarate 25 mg at bedtime, loperamide 2 mg every 12 hours, Colace 100 mg twice a day, magnesium hydroxide for milk of magnesia 30 mL p.o. daily p.r.n. for constipation, famotidine 20 mg at bedtime, Lactobacillus rhamnosus 1 capsule twice a day, Calmoseptine ointment apply topically twice a day, cyanocobalamin 1000 mcg tablet daily, cholecalciferol 5000 units daily, multivitamin 1 tablet once a day, melatonin 5 mg p.o. at bedtime. FAMILY HISTORY: Noncontributory. SOCIAL HISTORY: She is and currently lives with her at [facility]. She does not smoke, drink alcohol or use recreational drugs. She is mostly wheelchair bound. PHYSICAL EXAMINATION: GENERAL: On arrival to the Emergency Room, she looked well and was clearly in no apparent respiratory distress. There was no pallor, jaundice, cyanosis or thyromegaly. No jugular venous distention. No limb edema. VITAL SIGNS: Her heart rate was 87, blood pressure was 132/87, temperature was 98.3, respiratory rate was 18, and oxygen saturation was 93% on room air. HEAD, EYES, EARS, NOSE, AND THROAT: Normocephalic, atraumatic. NECK: Supple. HEART: Showed normal first and second heart sounds. No gallop or murmur. CHEST: Clear to auscultation, no crepitation or rhonchi. ABDOMEN: Distended, soft, nontender. There is no guarding or rigidity. No organomegaly. All hernial orifice intact. Bowel sounds normal. NEUROLOGIC: She was awake, alert. All her cranial nerves intact. She moves upper extremities without difficulty. She has a fixed flexion contraction of both lower extremities. She is mostly bedbound. LABORATORY DATA: In the Emergency Room showed a white cell count 12,500, hemoglobin 13, hematocrit 39, MCV 89, and platelet count 352,000. Her chemistry showed a serum sodium of 140, potassium 4, chloride 104, bicarbonate 26, anion gap of 10, BUN 14, creatinine 0.8, estimated GFR was 71 mL per minute, her glucose 108, calcium was 8.7. Total bilirubin, AST, ALT, alkaline phosphatase were normal. CK was 33. Total protein was 8.4, albumin 3.4, lipase was 81. Her influenza A and B were negative. Coronavirus by PCR was negative. She did have a chest x-ray, which showed the patient has diffuse interstitial infiltrate, likely superimposed on chronic interstitial changes. She does have cardiomegaly. Her CT scan of the abdomen and pelvis with IV contrast showed that the patient has diffuse thickening about the gallbladder with calcified stones in the gallbladder neck, suspicious for acute cholecystitis. She has also age indeterminate height loss of T9 vertebral body, mild dilatation of the common bile duct and hepatic hypoattenuation consistent with fatty liver. The CT scan of the head showed moderate cerebral volume loss and extensive chronic small vessel ischemic disease, but no acute intracranial process and she has bilateral arterial Doppler ultrasound that showed bilateral peroneal arteries are not visualized, which could be technical due to low slow flow or occlusion. There are predominantly biphasic waveforms throughout both lower extremities. ASSESSMENT AND PLAN: The patient was admitted, kept n.p.o., started on IV fluid and IV antibiotic and apparently we consulted the surgical team for acute cholecystitis. HEYDI DR: Anitra TID: [id number]
[2021-08-21 15:00] VITALS: BP 155/79
--- NOTE | 2021-08-21 17:21 | NUR ---
Wound/Ostomy Care Wound Type/Assessment: Wound care consult for coccyx/sacral wound. Head to toe skin assessment done, no open wound found. Scar tissue and healed PU noted on coccyx/sacral area, bilateral heels are red but blanchable. Pt very confused upon assessment and asked WC team to leave her room. Pt's lines were changed prior to leaving as she was saturated in urine. Foams applied to bilateral heels for protection. Groin area noted to be pink, nystatin powder has already been applied. Treatment Recommendations/Plan: apply skin prep and foams to bilateral heels every 3-4 days for protection. Education provided: unable to educate d/t confusion Offloading surface/device: purple wedge, pillows to offload heels Recommended Referrals/Tests: n/a Discharge Recommendations for dressings: same as above Addendum: 08/21/21 at 1727 by CHANDNI SINGH RN team will f/u on 08/28/21
[2021-08-21] MEDS ORDERED: LOPERAMIDE 2 MG CAPSULE PO PRN (19:45)
[2021-08-21] MEDS ORDERED: ACETAMINOPHEN 325 MG TABLET. PO PRN (19:45)
[2021-08-21] MEDS ORDERED: MAGNESIUM HYDROXIDE 2,400 MG/30 ML ORAL.SUSP. PO PRN (19:45)
--- NOTE | 2021-08-21 20:11 | NUR ---
patient very agitated, having visual and auditory hallucination, Dr Clarke contacted and new order made.
[2021-08-21] MEDS ORDERED: OLANZapine IM 10 MG VIAL. IM PRN (20:15)
[2021-08-21] MEDS: DOCUSATE SODIUM 100 MG CAPSULE. PO SCH (21:00)
[2021-08-21] MEDS ORDERED: INULIN PO SCH (21:00)
[2021-08-21] MEDS: LACTOBACILLUS RHAMNOSUS GG 1 CAPSULE. PO SCH (21:00)
[2021-08-21] MEDS: FAMOTIDINE 20 MG TABLET. PO SCH (21:00)
[2021-08-21] MEDS ORDERED: RHAMNOSUS GG PO SCH (21:00)
[2021-08-21] MEDS: BACLOFEN 10 MG TABLET. PO SCH (21:00)
[2021-08-21] MEDS ORDERED: NON FORMULARY ITEM (Melatonin 1 TAB) PO SCH (21:00)
[2021-08-21] MEDS: QUEtiapine 25 MG TABLET. PO SCH (21:21)
--- NOTE | 2021-08-22 00:12 | NUR ---
patient refused IV access re started, refuse medications.
[2021-08-22 00:37] VITALS: BP 142/73
[2021-08-22 03:00] VITALS: BP 115/67
[2021-08-22] MEDS: PIPERACILLIN/TAZOBACTAM 3.375 GM in IV NORMAL SALINE 50ML 50 ML IV SCH ×5 (06:00→21:26)
[2021-08-22 07:15] VITALS: BP 155/94
[2021-08-22 07:34] LABS: BASO # 0.1 x10^3/uL (0.0-0.2); BASO % 1 % (0-3); EOS # 0.4 x10^3/uL (0.0-0.7); EOS % 4 % (0-3); HEMATOCRIT 39.6 % (36.0-47.0); HEMOGLOBIN 13.2 g/dL (12.0-15.5); LYMPH # 1.5 x10^3/uL (1.0-4.8); LYMPH % 15 % (24-48); MEAN CORPUSCULAR HEMOGLOBIN 30 pg (25-35); MEAN CORPUSCULAR HGB CONC 33 g/dL (31-37); MEAN CORPUSCULAR VOLUME 89 fL (79-100); MONO # 1.3 x10^3/uL (0.0-1.1); MONO % 13 % (0-9); NEUT # 7.1 x10^3/uL (1.8-7.7); NEUT % 68 % (31-73); PLATELET COUNT 359 x10^3/uL (140-400); RED BLOOD COUNT 4.43 x10^6/uL (3.50-5.40); RED CELL DISTRIBUTION WIDTH 14.3 % (11.5-14.5); WHITE BLOOD COUNT 10.4 x10^3/uL (4.0-11.0)
[2021-08-22] MEDS: LACTOBACILLUS RHAMNOSUS GG 1 CAPSULE. PO SCH ×2 (07:53→20:54)
[2021-08-22] MEDS: DOCUSATE SODIUM 100 MG CAPSULE. PO SCH ×2 (07:53→20:54)
[2021-08-22] MEDS: CITALOPRAM 20 MG TABLET. PO SCH (07:53)
[2021-08-22] MEDS: QUEtiapine 25 MG TABLET. PO SCH ×2 (07:54→20:54)
[2021-08-22] MEDS: BACLOFEN 10 MG TABLET. PO SCH ×3 (07:54→20:54)
[2021-08-22] MEDS: NYSTATIN TOPICAL POWDER 15GM BOTTLE. TP SCH ×2 (07:55→21:25)
[2021-08-22 07:58] LABS: ALBUMIN 3.5 g/dL (3.4-5.0); ALBUMIN/GLOBULIN RATIO 0.7 (1.0-1.7); CALCIUM 9.4 mg/dL (8.5-10.1); CREATININE 0.9 mg/dL (0.6-1.0); GFR 62.1; POTASSIUM 3.2 mmol/L (3.5-5.1); TOTAL BILIRUBIN 0.5 mg/dL (0.2-1.0); TOTAL PROTEIN 8.5 g/dL (6.4-8.2)
[2021-08-22] MEDS: POTASSIUM CHLORIDE 20 MEQ TABLET.ER. PO SCH ×3 (09:00→17:00)
--- NOTE | 2021-08-22 09:11 | PN ---
DATE: 08/22/2021 SUBJECTIVE: The patient is resting, slightly propped up in bed, in no apparent distress. She is extremely confused, hallucinating, talking to people who are not there. However, she denied any abdominal pain. No further episodes of nausea or vomiting. She apparently has been extremely agitated last night, although we continued her Seroquel. She refused to take it and we have to give her Zyprexa intramuscularly to treat her restlessness and agitation. PHYSICAL EXAMINATION: GENERAL: When I saw her this morning, she looked well and was clearly in no apparent respiratory distress. No pallor, jaundice, cyanosis or thyromegaly. No jugular venous distention. No limb edema. VITAL SIGNS: Her heart rate was 98, blood pressure was 155/94, temperature 98.3, respiratory rate was 18 and oxygen saturation was 96% on room air. HEAD, EYES, EARS, NOSE AND THROAT: Normocephalic, atraumatic. NECK: Supple. HEART: Showed normal first and second heart sounds. No gallop, rub or murmur. CHEST: Clear to auscultation. No crepitation or rhonchi. ABDOMEN: Distended, soft, nontender. NEUROLOGIC: She is very confused; however, all her cranial nerves are intact. She moves upper extremities without difficulty. She is mostly bedbound, wheelchair-bound as she has lumbar spinal stenosis and fixed flexion contracture of both lower extremities. She has wounds on both heels. Her intake over the last 24 hours was 1000, output was 900. LABORATORY DATA: This morning showed a white cell count of 10,000, hemoglobin 13, hematocrit 39, MCV 89 and platelet count 359,000. Serum sodium 142, potassium 3.2, chloride 103, bicarbonate 28, anion gap of 11, BUN 13, creatinine 0.9, estimated GFR was 62 mL per minute, glucose 89, calcium was 9.4. Total bilirubin, AST, ALT, alkaline phosphatase were normal. Her total protein was 8.5, albumin 3.5. Her lipase was 81. ASSESSMENT: 1. Recurrent bouts of nausea, vomiting with a CT scan showing acute cholecystitis. Unfortunately, the patient refused surgery yesterday; however, eventually she agreed, but the surgical team will not be able to operate on her until Wednesday. 2. Aspiration pneumonia, for which she was started on IV Zosyn. Other medical problems include: A. Hypertension. B. Severe degenerative disk disease. C. Severe degenerative arthritis of both knees. PLAN: Continue with IV antibiotic. Continue with all other medications for her probably . She is on Seroquel 25 mg at bedtime. She also required olanzapine last night. MATTHEW DR: Anitra TID: [id number]
--- NOTE | 2021-08-22 09:18 | PDOC ---
SURGICAL PROGRESS NOTE DATE: 08/22/21 TIME: 09:17 Subjective more confused today nurse reports hallucinations Vital Signs Vital Signs Date Time Temp Pulse Resp B/P (MAP) Pulse Ox O2 Delivery O2 Flow Rate FiO2 08/22/21 07:17 Room Air 08/22/21 07:15 98.3 98 18 155/94 (114) 96 98.3 I&O Intake and Output 08/22/21 07:00 Intake Total 100 ml Output Total 150 ml Balance -50 ml Intake Oral 100 ml Output Urine Total 150 ml # Voids 3 General: Cooperative, No acute distress Abdomen: Soft Labs Laboratory Tests Test 08/20/21 11:05 08/20/21 12:37 08/22/21 06:40 Sodium Level 140 mmol/L (136-145) 142 mmol/L (136-145) Potassium Level 4.0 mmol/L (3.5-5.1) 3.2 mmol/L (3.5-5.1) Chloride Level 104 mmol/L (98-107) 103 mmol/L (98-107) Carbon Dioxide Level 26 mmol/L (21-32) 28 mmol/L (21-32) Anion Gap 10 (6-14) 11 (6-14) Blood Urea Nitrogen 14 mg/dL (7-20) 13 mg/dL (7-20) Creatinine 0.8 mg/dL (0.6-1.0) 0.9 mg/dL (0.6-1.0) Estimated GFR (Cockcroft-Gault) 71.1 62.1 Glucose Level 108 mg/dL (70-99) 89 mg/dL (70-99) Calcium Level 8.7 mg/dL (8.5-10.1) 9.4 mg/dL (8.5-10.1) Total Bilirubin 0.3 mg/dL (0.2-1.0) 0.5 mg/dL (0.2-1.0) Direct Bilirubin 0.1 mg/dL (0.0-0.2) Aspartate Amino Transf (AST/SGOT) 17 U/L (15-37) 23 U/L (15-37) Alanine Aminotransferase (ALT/SGPT) 21 U/L (14-59) 26 U/L (14-59) Alkaline Phosphatase 96 U/L (46-116) 90 U/L (46-116) Creatine Kinase 33 U/L (26-192) Total Protein 8.4 g/dL (6.4-8.2) 8.5 g/dL (6.4-8.2) Albumin 3.4 g/dL (3.4-5.0) 3.5 g/dL (3.4-5.0) Lipase 81 U/L (73-393) SARS-CoV-2 RNA (KIMBERLEE) Negative (Negative) SARS-CoV-2 Antigen (Rapid) Negative (NEGATIVE) White Blood Count 10.4 x10^3/uL (4.0-11.0) Red Blood Count 4.43 x10^6/uL (3.50-5.40) Hemoglobin 13.2 g/dL (12.0-15.5) Hematocrit 39.6 % (36.0-47.0) Mean Corpuscular Volume 89 fL (79-100) Mean Corpuscular Hemoglobin 30 pg (25-35) Mean Corpuscular Hemoglobin Concent 33 g/dL (31-37) Red Cell Distribution Width 14.3 % (11.5-14.5) Platelet Count 359 x10^3/uL (140-400) Neutrophils (%) (Auto) 68 % (31-73) Lymphocytes (%) (Auto) 15 % (24-48) Monocytes (%) (Auto) 13 % (0-9) Eosinophils (%) (Auto) 4 % (0-3) Basophils (%) (Auto) 1 % (0-3) Neutrophils # (Auto) 7.1 x10^3/uL (1.8-7.7) Lymphocytes # (Auto) 1.5 x10^3/uL (1.0-4.8) Monocytes # (Auto) 1.3 x10^3/uL (0.0-1.1) Eosinophils # (Auto) 0.4 x10^3/uL (0.0-0.7) Basophils # (Auto) 0.1 x10^3/uL (0.0-0.2) BUN/Creatinine Ratio 14 (6-20) Albumin/Globulin Ratio 0.7 (1.0-1.7) Laboratory Tests Test 08/22/21 06:40 White Blood Count 10.4 x10^3/uL (4.0-11.0) Red Blood Count 4.43 x10^6/uL (3.50-5.40) Hemoglobin 13.2 g/dL (12.0-15.5) Hematocrit 39.6 % (36.0-47.0) Mean Corpuscular Volume 89 fL (79-100) Mean Corpuscular Hemoglobin 30 pg (25-35) Mean Corpuscular Hemoglobin Concent 33 g/dL (31-37) Red Cell Distribution Width 14.3 % (11.5-14.5) Platelet Count 359 x10^3/uL (140-400) Neutrophils (%) (Auto) 68 % (31-73) Lymphocytes (%) (Auto) 15 % (24-48) Monocytes (%) (Auto) 13 % (0-9) Eosinophils (%) (Auto) 4 % (0-3) Basophils (%) (Auto) 1 % (0-3) Neutrophils # (Auto) 7.1 x10^3/uL (1.8-7.7) Lymphocytes # (Auto) 1.5 x10^3/uL (1.0-4.8) Monocytes # (Auto) 1.3 x10^3/uL (0.0-1.1) Eosinophils # (Auto) 0.4 x10^3/uL (0.0-0.7) Basophils # (Auto) 0.1 x10^3/uL (0.0-0.2) Sodium Level 142 mmol/L (136-145) Potassium Level 3.2 mmol/L (3.5-5.1) Chloride Level 103 mmol/L (98-107) Carbon Dioxide Level 28 mmol/L (21-32) Anion Gap 11 (6-14) Blood Urea Nitrogen 13 mg/dL (7-20) Creatinine 0.9 mg/dL (0.6-1.0) Estimated GFR (Cockcroft-Gault) 62.1 BUN/Creatinine Ratio 14 (6-20) Glucose Level 89 mg/dL (70-99) Calcium Level 9.4 mg/dL (8.5-10.1) Total Bilirubin 0.5 mg/dL (0.2-1.0) Aspartate Amino Transf (AST/SGOT) 23 U/L (15-37) Alanine Aminotransferase (ALT/SGPT) 26 U/L (14-59) Alkaline Phosphatase 90 U/L (46-116) Total Protein 8.5 g/dL (6.4-8.2) Albumin 3.5 g/dL (3.4-5.0) Albumin/Globulin Ratio 0.7 (1.0-1.7) Problem List Problems Medical Problems: (1) Acute cholecystitis Status: Acute (2) Nausea and vomiting Status: Acute Assessment/Plan need to address AMS--tentative plan for adonis wednesday if able to consent Justicifation of Admission Dx: Justifications for Admission: Justification of Admission Dx: Yes Comments: cholelithiasis JULIET PALOMINO [employer] STOCK CLERK Aug 22, 2021 09:18
--- NOTE | 2021-08-22 10:22 | NUR ---
SW following. Discussed with RN, pt now agreeable to surgery but has been hallucinating today and is unable to sign consents. Plan for lap adonis Wednesday. COVID-19 negative. Updates faxed to [facility]. SW will continue to follow.
[2021-08-22 11:37] VITALS: BP 143/83
[2021-08-22] MEDS ORDERED: MORPHINE SULFATE 4 MG/ML INJ. IVP ONE (14:00)
[2021-08-22] MEDS ORDERED: MORPHINE SULFATE 4 MG/ML INJ. ONE (14:07)
[2021-08-22 14:40] VITALS: BP 152/80
--- NOTE | 2021-08-22 15:35 | RAD ---
EXAM: HEPATOBILIARY SCINTIGRAPHY WITH GALLBLADDER EJECTION FRACTION CALCULATION. HISTORY: Abdominal pain/nausea. TECHNIQUE: 5.2 mCi technetium-99m Choletec were administered intravenously and scintigraphic images o f the abdomen obtained. 4 mg morphine was administered after nonfilling of the gallbladder. FINDINGS: There is mildly delayed clearance of tracer from the blood pool. There is homogeneous distr ibution throughout the liver. The gallbladder does not fill through 60 minutes. The gallbladder also does not fill after administration of morphine. There is clearance of activity into the common duct a nd small bowel. IMPRESSION: 1. Nonfilling of the gallbladder is nonspecific, but cystic duct obstruction and acute cholecystitis is not excluded. Ongoing follow-up is recommended. 2. Delayed clearance of activity from the blood pool suggests hepatocellular dysfunction. Electronically signed by: Jose R Vences MD (08/22/2021 3:33 PM) [id number]
[2021-08-22 19:30] VITALS: BP 116/70
[2021-08-22] MEDS: FAMOTIDINE 20 MG TABLET. PO SCH (20:54)
--- NOTE | 2021-08-22 22:20 | NUR ---
patient is more alert tonight, still confused, but calm and cooperative to RN ,IV re-started and will resume IV antibiotic per MD order.
[2021-08-23] MEDS: PIPERACILLIN/TAZOBACTAM 3.375 GM in IV NORMAL SALINE 50ML 50 ML IV SCH ×3 (05:06→17:33)
[2021-08-23 07:00] VITALS: BP 106/56
[2021-08-23 08:44] LABS: CALCIUM 8.9 mg/dL (8.5-10.1); POTASSIUM 4.2 mmol/L (3.5-5.1)
[2021-08-23] MEDS: NYSTATIN TOPICAL POWDER 15GM BOTTLE. TP SCH (09:00)
[2021-08-23] MEDS: QUEtiapine 25 MG TABLET. PO SCH ×2 (09:09→22:09)
[2021-08-23] MEDS: CITALOPRAM 20 MG TABLET. PO SCH (09:09)
[2021-08-23] MEDS: BACLOFEN 10 MG TABLET. PO SCH ×3 (09:09→22:09)
[2021-08-23] MEDS: DOCUSATE SODIUM 100 MG CAPSULE. PO SCH ×2 (09:09→22:09)
[2021-08-23] MEDS: LACTOBACILLUS RHAMNOSUS GG 1 CAPSULE. PO SCH ×2 (09:09→22:09)
[2021-08-23] MEDS: POTASSIUM CHLORIDE 20 MEQ TABLET.ER. PO SCH ×2 (09:10→17:32)
[2021-08-23 11:00] VITALS: BP 118/68
--- NOTE | 2021-08-23 11:40 | PDOC ---
SURGICAL PROGRESS NOTE DATE: 08/23/21 TIME: 11:39 Subjective Pt sleeping, but awakens. Denies c/o. Would like to do surgery on Wednesday. Vital Signs Vital Signs Date Time Temp Pulse Resp B/P (MAP) Pulse Ox O2 Delivery O2 Flow Rate FiO2 08/23/21 11:00 98.0 78 18 118/68 (85) 97 Room Air 98.0 I&O Intake and Output 08/23/21 07:00 Intake Total 440 ml Balance 440 ml Intake Oral 440 ml # Voids 3 General: Alert, Cooperative, No acute distress Abdomen: Soft, No tenderness Labs Laboratory Tests Test 08/22/21 06:40 08/23/21 07:05 White Blood Count 10.4 x10^3/uL (4.0-11.0) Red Blood Count 4.43 x10^6/uL (3.50-5.40) Hemoglobin 13.2 g/dL (12.0-15.5) Hematocrit 39.6 % (36.0-47.0) Mean Corpuscular Volume 89 fL (79-100) Mean Corpuscular Hemoglobin 30 pg (25-35) Mean Corpuscular Hemoglobin Concent 33 g/dL (31-37) Red Cell Distribution Width 14.3 % (11.5-14.5) Platelet Count 359 x10^3/uL (140-400) Neutrophils (%) (Auto) 68 % (31-73) Lymphocytes (%) (Auto) 15 % (24-48) Monocytes (%) (Auto) 13 % (0-9) Eosinophils (%) (Auto) 4 % (0-3) Basophils (%) (Auto) 1 % (0-3) Neutrophils # (Auto) 7.1 x10^3/uL (1.8-7.7) Lymphocytes # (Auto) 1.5 x10^3/uL (1.0-4.8) Monocytes # (Auto) 1.3 x10^3/uL (0.0-1.1) Eosinophils # (Auto) 0.4 x10^3/uL (0.0-0.7) Basophils # (Auto) 0.1 x10^3/uL (0.0-0.2) Sodium Level 142 mmol/L (136-145) 142 mmol/L (136-145) Potassium Level 3.2 mmol/L (3.5-5.1) 4.2 mmol/L (3.5-5.1) Chloride Level 103 mmol/L (98-107) 107 mmol/L (98-107) Carbon Dioxide Level 28 mmol/L (21-32) 22 mmol/L (21-32) Anion Gap 11 (6-14) 13 (6-14) Blood Urea Nitrogen 13 mg/dL (7-20) 21 mg/dL (7-20) Creatinine 0.9 mg/dL (0.6-1.0) 1.0 mg/dL (0.6-1.0) Estimated GFR (Cockcroft-Gault) 62.1 55.0 BUN/Creatinine Ratio 14 (6-20) Glucose Level 89 mg/dL (70-99) 65 mg/dL (70-99) Calcium Level 9.4 mg/dL (8.5-10.1) 8.9 mg/dL (8.5-10.1) Total Bilirubin 0.5 mg/dL (0.2-1.0) Aspartate Amino Transf (AST/SGOT) 23 U/L (15-37) Alanine Aminotransferase (ALT/SGPT) 26 U/L (14-59) Alkaline Phosphatase 90 U/L (46-116) Total Protein 8.5 g/dL (6.4-8.2) Albumin 3.5 g/dL (3.4-5.0) Albumin/Globulin Ratio 0.7 (1.0-1.7) Laboratory Tests Test 08/23/21 07:05 Sodium Level 142 mmol/L (136-145) Potassium Level 4.2 mmol/L (3.5-5.1) Chloride Level 107 mmol/L (98-107) Carbon Dioxide Level 22 mmol/L (21-32) Anion Gap 13 (6-14) Blood Urea Nitrogen 21 mg/dL (7-20) Creatinine 1.0 mg/dL (0.6-1.0) Estimated GFR (Cockcroft-Gault) 55.0 Glucose Level 65 mg/dL (70-99) Calcium Level 8.9 mg/dL (8.5-10.1) Problem List Problems Medical Problems: (1) Acute cholecystitis Status: Acute (2) Nausea and vomiting Status: Acute Assessment/Plan tentatively plan cholecystectomy on 08/25 Justicifation of Admission Dx: Justifications for Admission: Justification of Admission Dx: Yes DOTTY SZYMANSKI MD Aug 23, 2021 11:40
[2021-08-23 15:00] VITALS: BP 118/67
--- NOTE | 2021-08-23 16:50 | PN ---
DATE: 08/23/2021 SUBJECTIVE: The patient is resting, slightly propped up, sleeping comfortably, in no apparent distress. Nursing staff did not voice any concerns, said she has uneventful night, in particular, she did not have any owning, was not agitated or restless last night. OBJECTIVE: GENERAL: On examining her, she looked well and was clearly in no apparent respiratory distress. There was no pallor, jaundice, cyanosis or thyromegaly. No jugular venous distention. No lower limb edema. VITAL SIGNS: Her heart rate was 93, blood pressure was 116/70, temperature 98.2, respiratory rate was 18 and oxygen saturation was 91% on room air. The rest of clinical exam stable. Her intake and output incompletely recorded. LABORATORY DATA: She has no lab work done this morning and the labs ordered are still pending at the time of this dictation. Did have a HIDA scan that showed nonfilling of the gallbladder, is nonspecific, but cystic duct obstruction, acute cholecystitis, not excluded. She also had delayed clearance of activity from the blood pool, suggest hepatocellular dysfunction. PLAN: To continue with IV antibiotic. Continue with pain management. She apparently scheduled for a laparoscopic cholecystectomy on Wednesday. If she continue to be confused, we will have to talk to her for consent for surgery. HANS/NAVIN/SOLA DR: HANS/dania TID: [id number]
[2021-08-23 19:00] VITALS: BP 120/60
[2021-08-23] MEDS: FAMOTIDINE 20 MG TABLET. PO SCH (22:09)
[2021-08-23 23:52] VITALS: BP 105/52
[2021-08-24] MEDS: PIPERACILLIN/TAZOBACTAM 3.375 GM in IV NORMAL SALINE 50ML 50 ML IV SCH ×4 (00:01→17:27)
[2021-08-24] MEDS: NYSTATIN TOPICAL POWDER 15GM BOTTLE. TP SCH ×3 (01:50→20:48)
[2021-08-24 03:16] VITALS: BP 122/50
[2021-08-24 06:53] VITALS: BP 144/68
[2021-08-24] MEDS: POTASSIUM CHLORIDE 20 MEQ TABLET.ER. PO SCH ×2 (08:21→14:53)
[2021-08-24] MEDS: QUEtiapine 25 MG TABLET. PO SCH ×2 (08:21→20:47)
[2021-08-24] MEDS: CITALOPRAM 20 MG TABLET. PO SCH (08:21)
[2021-08-24] MEDS: BACLOFEN 10 MG TABLET. PO SCH ×3 (08:21→20:47)
[2021-08-24] MEDS: DOCUSATE SODIUM 100 MG CAPSULE. PO SCH ×2 (08:21→20:47)
[2021-08-24] MEDS: LACTOBACILLUS RHAMNOSUS GG 1 CAPSULE. PO SCH ×2 (08:21→20:47)
--- NOTE | 2021-08-24 08:36 | PN ---
DATE: 08/24/2021 SUBJECTIVE: The patient is resting, slightly propped up in bed, in no apparent distress. She is awake, alert. On questioning her, denied any complaint. OBJECTIVE: VITAL SIGNS: Her vital signs are stable. LABORATORY DATA: Within acceptable range. ASSESSMENT AND PLAN: Acute cholecystitis. Apparently, the patient is tentatively scheduled for laparoscopic cholecystectomy tomorrow, 08/25/2021. HANS/TOREY DR: Anitra TID: [id number]
[2021-08-24 11:00] VITALS: BP 107/71
[2021-08-24] MEDS ORDERED: ONDANSETRON PF 4 MG/2 ML VIAL. IVP PRN (14:45)
[2021-08-24] MEDS: fentaNYL PF VIAL 100 MCG/2 ML VIAL IVP PRN (14:53)
[2021-08-24 15:00] VITALS: BP 111/60
[2021-08-24] MEDS: DICLOFENAC SODIUM 1% TOPICAL GEL 100GM TUBE. TP SCH ×2 (17:27→21:04)
[2021-08-24 18:47] VITALS: BP 179/76
--- NOTE | 2021-08-24 18:55 | PDOC ---
SURGICAL PROGRESS NOTE DATE: 08/24/21 TIME: 18:54 Subjective Pt without c/o, planning surgery in AM but pt not sure about surgery Vital Signs Vital Signs Date Time Temp Pulse Resp B/P (MAP) Pulse Ox O2 Delivery O2 Flow Rate FiO2 08/24/21 18:47 97.7 72 18 179/76 (110) 98 Room Air 97.7 I&O Intake and Output 08/24/21 07:00 Intake Total 0 ml Output Total 600 ml Balance -600 ml Intake Oral 0 ml Output Urine Total 0 ml Urine/Stool Mix 600 ml # Voids 1 General: Alert, No acute distress Abdomen: Soft, No tenderness Labs Laboratory Tests Test 08/23/21 07:05 Sodium Level 142 mmol/L (136-145) Potassium Level 4.2 mmol/L (3.5-5.1) Chloride Level 107 mmol/L (98-107) Carbon Dioxide Level 22 mmol/L (21-32) Anion Gap 13 (6-14) Blood Urea Nitrogen 21 mg/dL (7-20) Creatinine 1.0 mg/dL (0.6-1.0) Estimated GFR (Cockcroft-Gault) 55.0 Glucose Level 65 mg/dL (70-99) Calcium Level 8.9 mg/dL (8.5-10.1) Problem List Problems Medical Problems: (1) Acute cholecystitis Status: Acute (2) Nausea and vomiting Status: Acute Assessment/Plan planning cholecystectomy in AM, but pt may not be agreeable Justicifation of Admission Dx: Justifications for Admission: Justification of Admission Dx: Yes DOTTY SZYMANSKI MD Aug 24, 2021 18:55
[2021-08-24] MEDS: FAMOTIDINE 20 MG TABLET. PO SCH (20:47)
[2021-08-24 22:49] VITALS: BP 169/70
[2021-08-25] VITALS (10 sets, daily range): BP systolic 119–161; BP diastolic 60–82
[2021-08-25] MEDS: PIPERACILLIN/TAZOBACTAM 3.375 GM in IV NORMAL SALINE 50ML 50 ML IV SCH ×5 (00:26→23:47)
[2021-08-25] MEDS ORDERED: fentaNYL PF VIAL 100 MCG/2 ML VIAL IVP PRN ×4 (06:00→08:45)
[2021-08-25] MEDS ORDERED: PROCHLORPERAZINE 10 MG/2 ML VIAL. IVP PRN ×2 (06:00→08:45)
[2021-08-25] MEDS ORDERED: MORPHINE SULFATE 2 MG/ML INJ. IVP PRN ×2 (06:00→08:45)
[2021-08-25] MEDS ORDERED: HYDROmorphone 2 MG/ML VIAL IVP PRN ×2 (06:00→08:45)
[2021-08-25] MEDS ORDERED: IV RINGERS,LACTATED 1000ML 1,000 ML IV SCH ×2 (06:00→08:45)
[2021-08-25] MEDS: POTASSIUM CHLORIDE 20 MEQ TABLET.ER. PO SCH ×2 (08:00→15:22)
--- NOTE | 2021-08-25 08:21 | PDOC ---
SURGICAL PROGRESS NOTE DATE: 08/25/21 TIME: 08:19 Subjective denies pain, denies nausea d/w nurse, pt and have been agreeable to surgery tells me this AM she is willing to have surgery Vital Signs Vital Signs Date Time Temp Pulse Resp B/P (MAP) Pulse Ox O2 Delivery O2 Flow Rate FiO2 08/25/21 02:57 97.7 70 18 152/74 (100) 97 Room Air 97.7 I&O Intake and Output 08/25/21 07:00 Intake Total 120 ml Output Total 0 ml Balance 120 ml Intake Oral 120 ml Output Urine Total 0 ml # Voids 1 General: Alert, Oriented X3 (knowns person, place this AM), Cooperative Abdomen: Normal bowel sounds, Soft, No tenderness Problem List Problems Medical Problems: (1) Acute cholecystitis Status: Acute (2) Nausea and vomiting Status: Acute Assessment/Plan cholecystitis more alert than wednesday, consenting to surgery plan today Justicifation of Admission Dx: Justifications for Admission: Justification of Admission Dx: Yes JULIET PALOMINO APRN Aug 25, 2021 08:21
[2021-08-25] MEDS: DICLOFENAC SODIUM 1% TOPICAL GEL 100GM TUBE. TP SCH ×4 (08:55→21:09)
[2021-08-25] MEDS: LACTOBACILLUS RHAMNOSUS GG 1 CAPSULE. PO SCH ×2 (08:58→21:06)
[2021-08-25] MEDS: QUEtiapine 25 MG TABLET. PO SCH ×2 (08:58→21:06)
[2021-08-25] MEDS: NYSTATIN TOPICAL POWDER 15GM BOTTLE. TP SCH ×2 (08:58→21:05)
[2021-08-25] MEDS: CITALOPRAM 20 MG TABLET. PO SCH ×2 (08:58→15:23)
[2021-08-25] MEDS: BACLOFEN 10 MG TABLET. PO SCH ×3 (08:58→21:06)
[2021-08-25] MEDS: DOCUSATE SODIUM 100 MG CAPSULE. PO SCH ×2 (08:58→21:06)
--- NOTE | 2021-08-25 09:23 | PN ---
DATE: 08/25/2021 SUBJECTIVE: The patient is resting, slightly propped up in bed, in no apparent distress. She is awake, alert. On questioning her, denied any complaint. She gave her consent for surgery. OBJECTIVE: On examining her, she looked well and was clearly in no apparent respiratory distress, awake. All her vital signs are stable. Clinical exam stable. PLAN: Apparently, she is scheduled for laparoscopic cholecystectomy today. MATTHEW DR: Anitra TID: [id number]
[2021-08-25] MEDS: IV RINGERS,LACTATED 1000ML 1,000 ML IV SCH (10:00)
[2021-08-25] MEDS ORDERED: LIDOCAINE 2% PF 5 ML VIAL. ONE (10:11)
[2021-08-25] MEDS ORDERED: ROCURONIUM 50 MG/5 ML VIAL. ONE (10:11)
[2021-08-25] MEDS ORDERED: PROPOFOL 10 MG/ML (20ML) VIAL. IV ONE (10:11)
[2021-08-25] MEDS ORDERED: fentaNYL PF VIAL 100 MCG/2 ML VIAL ONE (10:11)
[2021-08-25] MEDS ORDERED: MIDAZOLAM HCL/PF 2 MG/2 ML VIAL. ONE (10:20)
--- NOTE | 2021-08-25 10:31 | NUR ---
SW following. Discussed with RN, pt from [facility]. Pt having adonis this morning. Dr. Clarke stated pt may be able to return to [facility] later today if doing okay after surgery. RAHEL notified Dre at [facility]. RAHEL will continue to follow.
[2021-08-25] MEDS ORDERED: BUPIVACAINE MPF 0.5% 30 ML VIAL. IJ ONE (11:06)
[2021-08-25] MEDS ORDERED: IOHEXOL 300 MG/ML 50 ML VIAL. IV ONE (11:08)
[2021-08-25] MEDS ORDERED: DEXAMETHASONE SOD PHOS 4 MG/ML VIAL ONE (11:37)
[2021-08-25] MEDS ORDERED: ONDANSETRON PF 4 MG/2 ML VIAL. ONE (11:37)
[2021-08-25] MEDS ORDERED: SURGICEL HEMOSTAT 4X8 EACH. ONE (11:40)
--- NOTE | 2021-08-25 11:46 | RAD ---
INDICATION: Abdominal pain. Cholangiogram. Fluoro for procedure. IMPRESSION: Fluoroscopy was utilized by the clinical service to assist with their procedure. There are 4 saved images/series. The limited saved images show opacification of the intrahepatic and common bile ducts via the cystic duct stump. A nonbranching segment of the intrahepatic ducts projecting medially may represent an inc ompletely enhancing bile duct versus choledocholithiasis. Contrast passes the common bile duct to duo denum. 0.22 minutes of fluoroscopy time was used. This dictation is for the usage of fluoroscopy only. Please see the clinical service's procedure note for detail on the procedure. Electronically signed by: Yash Lopez MD (08/25/2021 11:44 AM) [id number]
[2021-08-25] MEDS ORDERED: SURGICEL HEMOSTAT 4X8 EACH. TP ONE (11:50)
--- NOTE | 2021-08-25 12:09 | PDOC4 ---
Operative Note Operative Note Operative Note: Preoperative Diagnosis: Acute cholecystitis Postoperative Diagnosis: Same Procedure: Laparoscopic cholecystectomy with intraoperative cholangiogram Surgeons: Renato Lamp Inspector: Quan TRAVIS Anesthesia: Gen. Estimated Blood Loss: 30 mL Specimen: Gallbladder to pathology Drains: None Complications: None Indications: The patient is a 70-year-old female who was admitted with findings of acute cholecystitis. Surgical treatment was offered by means of a laparoscopic cholecystectomy. The risks of surgery were discussed which include bleeding, infection, bile duct injury, bile leak, pain, the potential for additional surgeries or procedures. The patient understands and would like to proceed. Description: The patient was taken to the operating room and laid supine on the operating table. General anesthesia was performed. The abdomen was prepped with ChloraPrep and draped in a standard surgical fashion. A small infraumbilical incision was made with a scalpel. The Veress needle was then inserted and a pneumoperitoneum was then created. A 5 mm trocar was then inserted and the laparoscope was introduced. In the upper midabdomen a 12 mm trocar was inserted and in the right upper quadrant two 5 mm trochars were inserted. The gallbladder was markedly thickened with inflammatory changes c onsistent with acute cholecystitis. The gallbladder was retracted cephalad. The cystic duct was dissected free from surrounding tissues. One clip was placed on the duct near the gallbladder junction. An opening was made in the duct and a large stone was expressed. A cholangiocatheter placed within and secured with a clip. Using contrast dye and fluoroscopy an intraoperative c holangiogram was performed that appeared unremarkable. The clip and catheter were then withdrawn. Three clips were placed on the cystic duct and it was divided. The cystic artery was then identified, dissected free, doubly clipped and divided as well. The gallbladder was then mobilized away from the liver with cautery. A piece of Surgicel was placed on the gallbladder fossa to assist with any oozing. The gallbladder was then placed in an endoscopic bag and extracted at the superior trocar site. The fascia there was closed with an 0 PDS sutures. All blood and irrigation fluid was suctioned and hemostasis was good. The remaining ports were removed and the pneumoperitoneum was relieved. The skin incisions were closed using 4-0 Monocryl suture. Steri-Strips and dressings were then applied. The patient tolerated the procedure well and was sent to the recovery room in stable condition. At the end of the case all counts were correct. BREE HERNANDEZ MD Aug 25, 2021 12:09
[2021-08-25] MEDS ORDERED: HYDROcodone/APAP 5/325MG 1 TAB TABLET PO PRN (12:15)
--- NOTE | 2021-08-25 14:36 | NUR ---
assumed care post operatively. she is awake and answers appropiately. 4 telfa islands are clean and dry. ice to abdominal area
[2021-08-25] MEDS: fentaNYL PF VIAL 100 MCG/2 ML VIAL IVP PRN (15:23)
[2021-08-25] MEDS: FAMOTIDINE 20 MG TABLET. PO SCH (21:06)
[2021-08-26] MEDS: IV RINGERS,LACTATED 1000ML 1,000 ML IV SCH (01:47)
[2021-08-26 03:00] VITALS: BP 107/57
[2021-08-26] MEDS: PIPERACILLIN/TAZOBACTAM 3.375 GM in IV NORMAL SALINE 50ML 50 ML IV SCH ×2 (05:50→12:03)
[2021-08-26 07:00] VITALS: BP 130/90
[2021-08-26] MEDS: DOCUSATE SODIUM 100 MG CAPSULE. PO SCH (08:14)
[2021-08-26] MEDS: QUEtiapine 25 MG TABLET. PO SCH (08:14)
[2021-08-26] MEDS: LACTOBACILLUS RHAMNOSUS GG 1 CAPSULE. PO SCH (08:14)
[2021-08-26] MEDS: POTASSIUM CHLORIDE 20 MEQ TABLET.ER. PO SCH (08:14)
[2021-08-26] MEDS: BACLOFEN 10 MG TABLET. PO SCH ×2 (08:14→14:00)
[2021-08-26] MEDS: DICLOFENAC SODIUM 1% TOPICAL GEL 100GM TUBE. TP SCH ×2 (09:00→12:03)
[2021-08-26] MEDS: NYSTATIN TOPICAL POWDER 15GM BOTTLE. TP SCH (09:00)
--- NOTE | 2021-08-26 09:12 | PDOC ---
SURGICAL PROGRESS NOTE DATE: 08/26/21 TIME: 09:11 Subjective tearful--" wants her " denies abdominal pain no n/v Vital Signs Vital Signs Date Time Temp Pulse Resp B/P (MAP) Pulse Ox O2 Delivery O2 Flow Rate FiO2 08/26/21 07:00 97.6 84 18 130/90 (103) 92 Room Air 92.0 97.6 I&O Intake and Output 08/26/21 07:00 Intake Total 1250 ml Output Total 0 ml Balance 1250 ml Intake Oral 400 ml IV Total 850 ml Output Urine Total 0 ml # Voids 4 General: Cooperative, Other (tearful) Abdomen: Normal bowel sounds, Soft Problem List Problems Medical Problems: (1) Acute cholecystitis Status: Acute (2) Nausea and vomiting Status: Acute Assessment/Plan s/p adonis stable surgically can DC when primary ready Justicifation of Admission Dx: Justifications for Admission: Justification of Admission Dx: Yes JULIET PALOMINO APRN Aug 26, 2021 09:12
--- NOTE | 2021-08-26 10:04 | SNU/HH DC ---
DISCHARGE ORDERS DISCHARGE INFORMATION: DISCHARGE DATE: Aug 26, 2021 FINAL DIAGNOSIS Problems Medical Problems: (1) Acute cholecystitis Status: Acute (2) Nausea and vomiting Status: Acute CONDITION ON DISCHARGE: Stable CODE STATUS: Code Status: Full CUSTODIAL: SNF STAY <30 DAYS: Yes POST DISCHARGE ORDERS: ACTIVITY ORDERS: Activity as tolerated WEIGHT BEARING STATUS: As tolerated DIET AFTER DISCHARGE: Regular WOUND/INCISION CARE: Change dressing CHECKS AFTER DISCHARGE: CHECKS AFTER DISCHARGE: Check blood press - daily, Check your Temp as needed TREATMENT/EQUIPMENT ORDERS: ADAPTIVE EQUIPMENT NEEDED: None Physical Therapy For: Evalulation/Treatment Occupational Therapy For: Evaluation/Treatment DISCHARGE MEDICATIONS: Home Meds Active Scripts Multivitamin (MULTIVITAMINS) 1 Each Tablet, 1 TAB PO DAILY for wounds, #90 TAB 3 Refills Prov:MOISE PRATT MD 06/26/19 Reported Medications Famotidine (FAMOTIDINE) 20 Mg Tablet, 20 MG PO HS for gerd, TAB 08/20/21 Cyanocobalamin (Vitamin B-12) (B-12) 1,000 Mcg Tablet.er, 1000 MCG PO DAILY for supplement, TAB.SR 08/20/21 Docusate Sodium (DOCUSATE SODIUM) 100 Mg Capsule, 1 CAP PO BID for constipation for 15 Days, #30 CAP 0 Refills 08/20/21 Menthol/Zinc Oxide (CALMOSEPTINE OINTMENT) 3.5 Gm Oint.pack, 3.5 GM TP BID for excoriation, MISC 08/20/21 Baclofen (BACLOFEN) 10 Mg Tablet, 10 MG PO TID for MUSCLE RELAXER, #30 TAB 0 Refills 08/20/21 Acetaminophen (ACETAMINOPHEN) 325 Mg Tablet, 650 MG PO BID for pain, TAB 08/20/21 Acetaminophen (ACETAMINOPHEN) 325 Mg Tablet, 650 MG PO PRN Q6HRS PRN for PAIN, TAB 08/20/21 Cholecalciferol (Vitamin D3) (D3-50) 50,000 Unit Capsule, 5000 UNIT PO DAILY for supplement, CAP 08/20/21 Quetiapine Fumarate (SEROQUEL) 25 Mg Tablet, 25 MG PO HS for anxiety, TAB 08/20/21 Quetiapine Fumarate (SEROQUEL) 25 Mg Tablet, 12.5 MG PO DAILY for anxiety, TAB 08/20/21 Magnesium Hydroxide (MILK OF MAGNESIA) 400 Mg/5 Ml Oral.susp, 400 MG PO PRN Q24HRS PRN for CONSTIPATION, MISC 08/20/21 Melatonin (MELATONIN) 5 Mg Tab.rapdis, 1 TAB PO QHS for sleep for 30 Days, #30 TAB 0 Refills 08/20/21 Loperamide Hcl (ANTI-DIARRHEAL) 2 Mg Capsule, 2 MG PO PRN Q12HR PRN for DIARRHEA, CAP 08/20/21 Escitalopram Oxalate (ESCITALOPRAM OXALATE) 10 Mg Tablet, 10 MG PO DAILY for ANTI-DEPRESSANT, #30 TAB 0 Refills 08/20/21 L. Rhamnosus GG/Inulin (Culturelle Probiotics Capsule) 1 Each Capsule, 1 EACH PO BID for probiotic, CAP 06/21/19 MOISE PRATT MD Aug 26, 2021 10:04
[2021-08-26 11:00] VITALS: BP 133/63
[2021-08-26 12:04] VITALS: BP 133/63
--- NOTE | 2021-08-26 14:18 | NUR ---
Patient discharged back to facility via facility van. Facility staff has discharge orders and personal belongings.
--- NOTE | 2021-08-26 16:10 | PATHOLOGY ---
[facility] Accession Number: [id number] . 01 Material submitted: . gallbladder - GALLBLADDER AND CONTENTS . 01 Clinical history: . BILIARY DYSKINESIA LAP MARIANNE ACUTE CHOLECYSTITIS NAUSEA . 02 Diagnosis: Gallbladder, laparoscopic cholecystectomy: - Cholelithiasis. - Chronic fibrosing and focal early slight acute cholecystitis. - Focal lipogranulomata of gallbladder neck lymph node. (JPM:[facility]; 08/26/2021) [facility] 08/26/2021 1357 Local . 02 Comment: There is no evidence of malignancy. (JPM:[facility]; 08/26/2021) . 02 Electronically signed: . Todd Pang MD, Pathologist NPI- [id number] . 01 Gross description: . Fixative: Formalin Labeled: Gallbladder Specimen received: Previously disrupted gallbladder Dimensions: 8.5 x 4.2 x 2.5 cm Serosa: Purple-gage and roughened Lymph node: None identified Mucosa: [place] and roughened Average wall thickness: Up to 0.4 cm Calculi: Present displaying a bright yellow, nodular appearance, with multiple lodged within the cystic duct Abnormalities: None identified . A1- Certified Rehabilitation Counselor body, fundus, and the cystic duct margin. ([facility]; 08/25/2021) N[facility]/NRI 08/25/2021 2146 Local . 02 Pathologist provided ICD-10: K80.12 . 02 CPT . 348357 Specimen Comment: A courtesy copy of this report has been sent to [phone], [phone] Specimen Comment: [id number], Specimen Comment: Report sent to , DR PRATT / DR SEWELL Specimen Comment: A duplicate report has been generated due to demographic updates. Performed at: 01 [facility] [address] [facility] [address], [place] [id number] MD Rolando Pedraza MD Phone: [phone] Performed at: 02 [facility] [address] [place], [place] [id number] MD Todd Pang MD Phone: [phone]
== END 2021-08-26 14:24 | DRG 417 ==
LOC: ER 08:10 → 4 NORTH 12:37
PROVIDERS: ADMIT Internal Medicine; ATTEND Internal Medicine
PROC: BF101ZZ Fluoroscopy of Bile Ducts using Low Osmolar Contrast (ICD-10-PCS; 2021-08-25)
PROC: 0FT44ZZ Resection of Gallbladder, Percutaneous Endoscopic Approach (ICD-10-PCS; principal; 2021-08-25 10:30)
DX: K80.00 Calculus of gallbladder with acute cholecystitis without obstruction (principal); J69.0 Pneumonitis due to inhalation of food and vomit; R65.11 Systemic inflammatory response syndrome (SIRS) of non-infectious origin with acute organ dysfunction; F03.90 Unspecified dementia, unspecified severity, without behavioral disturbance, psychotic disturbance, mood disturbance, and anxiety; I11.9 Hypertensive heart disease without heart failure; K76.0 Fatty (change of) liver, not elsewhere classified; M17.0 Bilateral primary osteoarthritis of knee; Z20.822 Contact with and (suspected) exposure to COVID-19; Z53.20 Procedure and treatment not carried out because of patient's decision for unspecified reasons; Z96.649 Presence of unspecified artificial hip joint; Z99.3 Dependence on wheelchair; M19.90 Unspecified osteoarthritis, unspecified site; Z90.49 Acquired absence of other specified parts of digestive tract
CPT/HCPCS: 36415; 70450; 71045; 74177; 74300; 78226; 80048; 80053; 80076; 82550; 82962; 83605; 83690; 83880; 84484; 85025; 87040; 87426; 87804; 88304; 93005; 93925; 96361; 96374; 96375; A4213; A4314; A4364; A4452; A4657; A4930; A6219; A9537; C1887; J0690; J1100; J2250; J2270; J2405; J2543; J2704; J3010; J3490; J7030; J7120; Q9967; U0003; U0005; 99285-25; G0378